=== PATIENT | male | born 1970 | race Caucasian/White ===

== ENCOUNTER → 2018-09-10 | Outpatient (CLI) | payer BC ==
[2018-09-10 15:34] LABS: Basophils # (A) 0.1 k/uL (0-0.2); Basophils % (A) 1 %; Eosinophils # (A) 0.1 k/uL (0-0.7); Eosinophils % (A) 1 %; HCT 40.3 % (39.0-53.0); HGB 13.3 gm/dL (13.0-17.5); Lymphocytes # (A) 2.4 k/uL (1.0-4.8); Lymphocytes % (A) 21 %; MCH 29.5 pg (25.0-35.0); MCHC 33.1 g/dL (31.0-37.0); MCV 89.2 fL (80.0-100.0); Mean Platelet Volume 6.3; Monocytes # (A) 0.5 k/uL (0-1.0); Monocytes % (A) 4 %; Neutrophils # (A) 8.5 k/uL (1.3-7.7); Neutrophils % (A) 73 %; Platelet Count 566 k/uL (150-450); Poikilocytosis Slight; RBC 4.51 m/uL (4.30-5.90); RDW 13.7 % (11.5-15.5); WBC 11.6 k/uL (3.8-10.6)
[2018-09-10 16:48] LABS: Erythrocyte Sedimentation Rate 86 mm/hr (0-15)
[2018-09-10 23:40] LABS: African American GFR (CKD) 122.4 (60.0-200.0); Albumin 4.3 g/dL (3.80-4.90); Albumin/Globulin Ratio 1.65 (1.60-3.17); BUN/Creat Ratio 12.5 Ratio (12.00-20.00); Calcium 9.6 mg/dL (8.7-10.3); Globulin 2.6 g/dL (1.6-3.3); Potassium 4.3 mmol/L (3.5-5.5); Total Bilirubin 0.7 mg/dL (0.3-1.2); Total Protein 6.9 g/dL (6.2-8.2)
[2018-09-10 23:50] LABS: T4, Free (Free Thyroxine) 1.3 ng/dL (0.80-1.80)
[2018-09-11 11:30] LABS: APTT 55 Sec(s) (<43); APTT 1:1 Mix 48 Sec(s) (<43); DRVVT 1:1 Mix 84 Sec(s) (<44); DRVVT Confirmation Positive (Negative); Dilute Russell Viper Venom 109 Sec(s) (<44); Hexagonal Phase Neutralization Positive (Negative)
== END | disposition home or self-care (01) ==
LOC: LABWHC1 14:52
PROVIDERS: ATTEND Internal Medicine
DX: R42 Dizziness and giddiness (principal); I26.99 Other pulmonary embolism without acute cor pulmonale
CPT/HCPCS: 36415; 80053; 82607; 84439; 84443; 85025; 85598; 85613; 85652; 85730; 85732

== ENCOUNTER → 2018-12-26 | Outpatient (CLI) | payer BC ==
--- NOTE | 2018-12-26 08:35 | CT ---
EXAMINATION TYPE: CT abdomen pelvis wo con DATE OF EXAM: 12/26/2018 HISTORY: Hematuria CT DLP: 1341.50 mGycm. Automated Exposure Control for Dose Reduction was Utilized. TECHNIQUE: CT scan of the abdomen and pelvis is performed without oral or IV contrast. COMPARISON: NONE FINDINGS: Within the limitations of a non-contrast study, the following observations are made. LUNG BASES: Left basilar linear scarring and/or atelectasis. LIVER/GB: No significant abnormality is appreciated. PANCREAS: No significant abnormality is seen. SPLEEN: No significant abnormality is seen. ADRENALS: No significant abnormality is seen. KIDNEYS: Large right renal pelvic stone measuring 2.0 cm long axis coronal image 55. Mild right-sided hydronephrosis and proximal hydroureter. No obstructing ureteral calculi. No left-sided renal calcul i or hydronephrosis. No additional right-sided renal calculi. BOWEL: No significant abnormality is seen. GENITAL ORGANS: Central calcifications in the prostate gland. LYMPH NODES: No greater than 1cm abdominal or pelvic lymph nodes are appreciated. OSSEOUS STRUCTURES: Moderate narrowing and acetabular spurring in both hip joints. Prominent facet ar thropathy lower lumbar spine. OTHER: No significant additional abnormality is seen. IMPRESSION: There is 2.0 cm calculus right renal pelvis with mild right-sided hydronephrosis. Advise urology referral to assess for lithotripsy. A Yellow level critical message alert has been initiated for Earl Helms MD via the [employer] Critical Results System on 12/26/2018 8:33 AM. This message alert has been sent to Earl cardona MD via the preferences provided by the clinician for the receipt of Radiology Critical Findings. Message ID [id number].
== END | disposition home or self-care (01) ==
LOC: RADCTMAIN 07:43
PROVIDERS: ATTEND Family Medicine
DX: N20.0 Calculus of kidney (principal); N13.30 Unspecified hydronephrosis; Z88.8 Allergy status to other drugs, medicaments and biological substances; Z88.1 Allergy status to other antibiotic agents
CPT/HCPCS: 74176

== ENCOUNTER → 2019-01-16 | Outpatient (CLI) | payer BC ==
[2019-01-16 11:37] LABS: Basophils % (A) 0 %; Eosinophils # (A) 0.1 k/uL (0-0.7); Eosinophils % (A) 1 %; HCT 41.8 % (39.0-53.0); HGB 14.4 gm/dL (13.0-17.5); Lymphocytes # (A) 2.3 k/uL (1.0-4.8); Lymphocytes % (A) 31 %; MCH 31.9 pg (25.0-35.0); MCHC 34.3 g/dL (31.0-37.0); Mean Platelet Volume 7.3; Monocytes # (A) 0.4 k/uL (0-1.0); Monocytes % (A) 5 %; Neutrophils # (A) 4.6 k/uL (1.3-7.7); Neutrophils % (A) 61 %; Platelet Count 258 k/uL (150-450); RDW 13.4 % (11.5-15.5); WBC 7.6 k/uL (3.8-10.6)
[2019-01-16 12:33] LABS: Appearance,Urine Turbid (Clear); Bacteria,Urine Occasional /hpf; Bilirubin,Urine Negative (Negative); Blood,Urine Large (Negative); Color,Urine Red; Glucose,Urine (UA) Negative (Negative); Ketones,Urine Negative (Negative); Leukocyte Esterase,Urine Small (Negative); Mucus,Urine Many /hpf; Nitrite,Urine Negative (Negative); PH, Urine 5.5 (5.0-8.0); Protein,Urine 2+ (Negative); RBC,Urine >182 /hpf (0-5); Specific Gravity,Urine 1.023 (1.001-1.035); Squamous Epithelial Cell,Urine 2 /hpf (0-4); Urobilinogen,Urine <2.0 mg/dL (<2.0); WBC,Urine 29 /hpf (0-5)
[2019-01-16 12:38] LABS: African American GFR (CKD) >90 (>60 ml/min/1.73 sqM); Anion Gap 9 mmol/L; Blood Urea Nitrogen 11 mg/dL (9-20); Calcium 9.5 mg/dL (8.4-10.2); Carbon Dioxide 27 mmol/L (22-30); Chloride 107 mmol/L (98-107); Glucose 92 mg/dL (74-99); Non-African American GFR(CKD) >90 (>60 ml/min/1.73 sqM); Potassium 4.3 mmol/L (3.5-5.1); Sodium 143 mmol/L (137-145)
== END ==
LOC: LABPAT 10:25
PROVIDERS: ATTEND Urology
DX: Z01.812 Encounter for preprocedural laboratory examination (principal); R31.0 Gross hematuria
CPT/HCPCS: 36415; 80048; 81001; 85025

== ENCOUNTER 2019-01-23 08:49 | Day surgery (SDC) | payer BC ==
[2019-01-21 11:45] VITALS: BMI 35.5
--- NOTE | 2019-01-22 10:17 | P.GSHP ---
History of Present Illness H&P Date: 01/22/19 47 yo male with a painful 2 cm right renal pelvis stone since september. Mild hydro We discussed treatment options He comes for a right pcnl. Risks complications and alternatives have been discussed. - Constitutional Constitutional: Denies chills, Denies fever - EENT Eyes: denies blurred vision, denies pain Ears, nose, mouth and throat: Denies headache, Denies sore throat - Cardiovascular Cardiovascular: Denies chest pain, Denies shortness of breath - Respiratory Respiratory: Denies cough, Denies 7 - Gastrointestinal Gastrointestinal: Denies abdominal pain, Denies diarrhea, Denies nausea, Denies vomiting - Genitourinary (Female) Genitourinary: Denies dysuria, Denies hematuria - Genitourinary (Male) Genitourinary: Denies dysuria, Denies hematuria - Musculoskeletal Musculoskeletal: Denies myalgias - Integumentary Integumentary: Denies pruritus, Denies rash - Neurological Neurological: Denies numbness, Denies weakness - Psychiatric Psychiatric: Denies anxiety, Denies depression - Endocrine Endocrine: Denies fatigue, Denies weight change Past Medical History Past Medical History: Deep Vein Thrombosis (DVT), GERD/Reflux, Osteoarthritis (OA), Pulmonary Embolus (PE), Skin Disorder Additional Past Medical History / Comment(s): DVT, PE 08/2018, After Total Knee surg 07/2018. Kidney stones, has currently. Recent lumps on lower back, told he had bacterial infection, on po AB Rx x5 days, healing now. RLS, neuropathy feet. History of Any Multi-Drug Resistant Organisms: None Reported Past Surgical History: Appendectomy, Joint Replacement Additional Past Surgical History / Comment(s): Lt Total Knee. Scopes on hali knees, ankles. EGD, Colonoscopy. Past Anesthesia/Blood Transfusion Reactions: No Reported Reaction Smoking Status: Former smoker - Past Family History Mother Family Medical History: Cancer Additional Family Medical History / Comment(s): Colon, stomach CA. Medications and Allergies Home Medications Medication Instructions Recorded Confirmed Type Augmentin (Unknown Dose) 1 cap PO BID 01/21/19 History Cholecalciferol (Vitamin D3) 2,000 unit PO DAILY 01/21/19 01/21/19 History [Vitamin D3] Gabapentin [Neurontin] 600 mg PO QID 01/21/19 01/21/19 History HYDROcodone/APAP 5-325MG [[place] 1 tab PO Q6HR PRN 01/21/19 01/21/19 History 5-325] Rivaroxaban [Xarelto] 20 mg PO DAILY 01/21/19 01/21/19 History Super B Complex 1 cap PO DAILY 01/21/19 History rOPINIRole HCL [Requip] 1 mg PO TID 01/21/19 01/21/19 History Allergies Allergy/AdvReac Type Severity Reaction Status Date / Time levofloxacin [From Levaquin] Allergy Rash/Hives Verified 01/21/19 11:21 metronidazole [From Flagyl] Allergy Rash/Hives Verified 01/21/19 11:21 Surgical - Exam - General well developed, well nourished, no distress - Eyes PERRL - ENT no hearing loss - Neck no masses - Respiratory normal expansion, normal respiratory effort - Cardiovascular Rhythm: regular - Abdomen Abdomen: soft, non tender - Genitourinary normal penis with no external lesions, testicles present - Integumentary no rash, no growths - Neurologic normal coordination, normal sensation - Musculoskeletal normal gait, normal posture - Psychiatric oriented to time, oriented to person, oriented to place, speech is normal, memory intact Results - Imaging CT scan - abdomen: report reviewed, image reviewed CT scan - pelvis: report reviewed, image reviewed Assessment and Plan Assessment: Impression: Right renal stone large Plan: Right PCNL
[~2019-01-23 08:49] MED LIST: DEXAMETHASONE SOD PHOSPHATE 10 MG/ML 1 ML VIAL IV ONE; MIDAZOLAM 2 MG/2 ML VIAL IV PRN; ONDANSETRON 4 MG/2 ML VIAL IVP ONE; SCOPOLAMINE 1.5MG/72HR PATCH TRANSDERM ONE
--- NOTE | 2019-01-23 09:51 | XR ---
EXAMINATION TYPE: XR KUB DATE OF EXAM: 01/23/2019 9:30 AM CLINICAL HISTORY: Right-sided kidney stone. TECHNIQUE: Two supine KUB images of the abdomen are obtained. COMPARISON: CT abdomen and pelvis December 26, 2018. FINDINGS: The large central calculus right kidney measuring near 2.0 cm over the right 12th rib is le ss well seen on x-ray but likely stable in position. No left-sided nephrolithiasis. Calcific densitie s projecting over right iliac crest respond to dystrophic calcifications or sutures related to append ectomy. Overall nonobstructive bowel gas pattern. Some multilevel spurring in the spine. Prostatic calcificat ions overlying the pubic symphysis. IMPRESSION: Stable large right renal pelvic calculus.
[2019-01-23] MEDS: LACTATED RINGERS 1,000 ML IV SCH (09:53)
[2019-01-23] MEDS ORDERED: HYDROcodone/APAP 5-325MG 1 EACH TAB PO PRN (11:32)
[2019-01-23] MEDS ORDERED: ACETAMINOPHEN TAB 325 MG TAB PO PRN (11:33)
[2019-01-23] MEDS ORDERED: MAG HYDROX/AL HYDROX/SIMETH 30 ML CUP PO PRN (11:33)
[2019-01-23] MEDS ORDERED: ONDANSETRON 4 MG/2 ML VIAL IVP PRN (11:33)
[2019-01-23] MEDS ORDERED: HYDROmorphone PCA 10 MG/50 ML BAG IV PRN (11:46)
[2019-01-23] MEDS ORDERED: NALOXONE 0.4 MG/ML 1 ML VIAL IV PRN (11:46)
[2019-01-23] MEDS ORDERED: NEOSTIGMINE 1 MG/ML 10 ML VIAL ONE (11:59)
[2019-01-23] MEDS ORDERED: SUCCINYLCHOLINE CHLORIDE 100 MG/5 ML SYR IV ONE (11:59)
[2019-01-23] MEDS ORDERED: GLYCOPYRROLATE 0.2 MG/ML 2 ML VIAL ONE (11:59)
[2019-01-23] MEDS ORDERED: fentaNYL (PF) 50 MCG/ML 2 ML AMP ONE (11:59)
[2019-01-23] MEDS ORDERED: MIDAZOLAM 2 MG/2 ML VIAL ONE (11:59)
[2019-01-23] MEDS ORDERED: LIDOCAINE 1% INJ 10MG/ML (20 ML MDV) ONE (11:59)
[2019-01-23] MEDS ORDERED: PROPOFOL 10 MG/ML 20 ML VIAL IV ONE (11:59)
[2019-01-23] MEDS ORDERED: ROCURONIUM BROMIDE 10 MG/ML 10 ML VIAL IV ONE (11:59)
[2019-01-23] MEDS ORDERED: IOPAMIDOL-370 50ML BTL MISCELLANE ONE (12:40)
[2019-01-23] MEDS ORDERED: LACTATED RINGERS 1,000 ML IV ONE (12:50)
--- NOTE | 2019-01-23 13:35 | P.OP ---
Date of Procedure: 01/23/19 Preoperative Diagnosis: right renal calculus large Postoperative Diagnosis: same Procedure(s) Performed: cystoscopy, placement of occluding balloon catheter right, percutaneous nephrostomy (Dr. Mackey) percutaneous nephrostolithotomy ultrasound, placement of 10-Belgian J nephrostomy Anesthesia: RAMONA Surgeon: Roberto Daly Estimated Blood Loss (ml): 50 Pathology: other (stone) Condition: stable Disposition: PACU Indications for Procedure: patient is 48. He has a 2.2 cm right renal pelvic stone with [place]. He comes for percutaneous nephrostolithotomy Description of Procedure: the patient is brought to the operating suite. He is given a general endo tracheal anesthesia on the transport gurney. He's placed in a frog position with a sterile prep and drape. Cystoscopy Foroblique lens and 22-Belgian sheath identifies a normal urethra. The prostate is not obstructing. The right ureteral orifice is identified and intubated with a 5-Belgian occluding balloon catheter at the UPJ. The cystoscope was removed. The ureteral catheter secured to a 16-Belgian Joshua. The patient is placed in a prone position with care to airways and extremities. Dr. Mackey of radiology performed percutaneous access to a right middle pole posterior calyx. I dilate the tract to 30-Belgian. The rigid sheath is introduced into the collecting system. The stone was identified. With the ultrasound I break the stone into smaller pieces and suction out or grasp the larger pieces. At the end of the procedure I looked throughout the collecting system with the flexible scope and do not see any remaining fragments. The UPJ is clear. Over the working wire a 10-Belgian J nephrostomy tube was placed and secured to the skin with 2-0 silk. The patient is awake and returned recovery room good condition. Blood loss is approximately 50 mL. He'll be placed in the hospital postoperatively.
[2019-01-23] MEDS ORDERED: KETOROLAC 30 MG/ML 1 ML VIAL IVP ONE (13:58)
[2019-01-23] MEDS: HYDROmorphone 0.5 MG/0.5 ML SYRINGE IVP PRN ×3 (14:05→14:25)
--- NOTE | 2019-01-23 14:29 | FL ---
EXAMINATION TYPE: FL Perc Nephrostomy New Access DATE OF EXAM: 01/23/2019 COMPARISON: CT 12/26/2018 HISTORY: Right renal calculus. PROCEDURE: Maximal barrier technique was utilized. The skin overlying the right kidney was localized using fluo roscopy and the overlying skin prepped and draped. Skin mesha was made with a scalpel. Access was ga ined under fluoroscopy, following placement of a ureteral occlusion balloon by the referring mami n and instillation of air in the renal collecting system with a 21-gauge needle to the kidney. A meaghan table posterior calyx was chosen. A 0.018 inch wire was advanced. The access site was dilated and subsequently a sheath was advanced into the renal pelvis following dilation with balloon along the tr act. Urine returned in the hub of the catheter. The patient underwent nephrolithotomy by the refervickey ramires clinician. The patient remained in stable condition without complication. The patient was discha rged to observation. IMPRESSION: STATUS POST NEPHROSTOMY PLACEMENT FOR NEPHROLITHOTOMY WITH FLUOROSCOPIC GUIDANCE. THIS PROCEDURE PER FORMED BY THE UNDERSIGNED. 59 seconds fluoroscopy time, single intraoperative C-arm image documents t he procedure
[2019-01-23] MEDS: GABAPENTIN 300 MG CAP PO SCH ×2 (16:36→21:19)
[2019-01-23] MEDS: DEXTROSE 5%-0.45% NACL 1,000 ML IV SCH ×2 (16:51→21:19)
[2019-01-23] MEDS: AMOXIC-POT CLAV 875-125MG 1 EACH TAB PO SCH (21:19)
[2019-01-24] MEDS: LACTATED RINGERS 1,000 ML IV SCH (01:39)
[2019-01-24 07:57] VITALS: BP 119/68; PULSE 57; RESP 15; TEMP 97.9
[2019-01-24] MEDS: AMOXIC-POT CLAV 875-125MG 1 EACH TAB PO SCH (09:22)
[2019-01-24] MEDS: GABAPENTIN 300 MG CAP PO SCH ×2 (09:22→12:57)
[2019-01-24] MEDS: DEXTROSE 5%-0.45% NACL 1,000 ML IV SCH (09:30)
[2019-01-24] MEDS ORDERED: HYDROcodone/APAP 5-325MG 1 EACH TAB PO PRN (12:08)
--- NOTE | 2019-01-24 12:14 | P.DS ---
Providers Date of admission: 01/23/19 23:26 Attending physician: Roberto Daly Primary care physician: [facility] [place][Note 3] Course: The patient is a 48-year-old gentleman with a 2.2 cm right renal stone in the renal pelvis. He underwent percutaneous nephrostolithotomy 01/23/2019. This was done without difficulty. He has done well overnight. His pain is under control. I will discontinue his Joshua and IV fluids. If his pain veins under control and he voids he will be discharged home. In care of family regular diet limited activity. He'll go home with a nephrostomy tube. He'll follow-up in the office in 01/28/2019 first nephrostomy tube removal. Postoperative instructions been given. The patient understands and consents. Patient Condition at Discharge: Good Plan - Discharge Summary Discharge Rx Participant: No New Discharge Prescriptions: New HYDROcodone/APAP 5-325MG [[place] 5-325] 1 tab PO Q4HR PRN #10 tab PRN Reason: Pain No Action HYDROcodone/APAP 5-325MG [[place] 5-325] 1 tab PO Q6HR PRN PRN Reason: Pain Cholecalciferol (Vitamin D3) [Vitamin D3] 2,000 unit PO DAILY Rivaroxaban [Xarelto] 20 mg PO DAILY rOPINIRole HCL [Requip] 1 mg PO TID Gabapentin [Neurontin] 600 mg PO QID Super B Complex 1 cap PO DAILY Augmentin (Unknown Dose) 1 cap PO BID Discharge Medication List Augmentin (Unknown Dose) 1 cap PO BID 01/21/19 [History] Cholecalciferol (Vitamin D3) [Vitamin D3] 2,000 unit PO DAILY 01/21/19 [History] Gabapentin [Neurontin] 600 mg PO QID 01/21/19 [History] HYDROcodone/APAP 5-325MG [[place] 5-325] 1 tab PO Q6HR PRN 01/21/19 [History] Rivaroxaban [Xarelto] 20 mg PO DAILY 01/21/19 [History] Super B Complex 1 cap PO DAILY 01/21/19 [History] rOPINIRole HCL [Requip] 1 mg PO TID 01/21/19 [History] HYDROcodone/APAP 5-325MG [[place] 5-325] 1 tab PO Q4HR PRN #10 tab 01/24/19 [Rx] Follow up Appointment(s)/Referral(s): Roberto Daly MD [STAFF PHYSICIAN] - 01/28/19 Activity/Diet/Wound Care/Special Instructions: home with nephrostomy tube Discharge Disposition: HOME SELF-CARE
== END 2019-01-24 12:41 | disposition home or self-care (01) ==
LOC: OR 08:49 → 4SSUR 15:07 → UNDOADMOB 23:26 → 4SSUR 23:26 → OR 23:26 → UNDODISOB 01-24 15:07
PROVIDERS: ATTEND Urology
DX: N20.0 Calculus of kidney (principal); Z96.652 Presence of left artificial knee joint; Z87.891 Personal history of nicotine dependence; Z80.0 Family history of malignant neoplasm of digestive organs; Z79.899 Other long term (current) drug therapy; Z88.1 Allergy status to other antibiotic agents; Z86.718 Personal history of other venous thrombosis and embolism; Z86.711 Personal history of pulmonary embolism; Z79.01 Long term (current) use of anticoagulants
CPT/HCPCS: 86900; 86901; 86850; 82365; 50432; 74018; 50081; C2628; C1769 ×2; C1894; C1729; J2250; J1100; J2710; J0690; J2405; J2001; J3010; J1885; J0330; J2704; J1170 ×2; Q9967

== ENCOUNTER → 2019-09-12 | Outpatient (CLI) | payer BC ==
--- NOTE | 2019-09-13 08:18 | ECHOS ---
STRESS ECHOCARDIOGRAM LUMASON: Vial INDICATIONS: Stress Echo MEDICATIONS: BASELINE HEART RATE: 69 BASELINE BLOOD PRESSURE: 107/93 MAXIMUM HEART RATE: 148 MAXIMUM BLOOD PRESSURE: 185/78 85% MPHR: 145 100% MPHR: 171 METS: 10.5 MAXIMUM STAGE REACHED: 3 TOTAL EXERCISE TIME: 9:00 CLINICAL INFORMATION: Baseline heart rate 69 beats per minute. Baseline blood pressure 107/73 mmHg. Baseline 12-lead ECG shows sinus rhythm with [address] elevation in the inferior leads. The patient exercised on a Maury protocol for 9 minutes, achieving a peak heart rate of 148 beats per minute. Normal blood pressure response to exercise. There was no ECG evidence for ischemia. Occasional PVCs were noted during exercise. No evidence for ischemia. Baseline 2D echo images were suboptimal. Definity contrast was used. There were no abnormalities at baseline. With exercise there was excellent augmentation of overall LV contractility without development of any wall motion abnormalities. At recovery, regional global LV systolic function remained normal. IMPRESSION: Good exercise capacity. No ECG or echocardiographic evidence for ischemia. Occasional PVCs with exercise. MMODL / IJN: [id number] /
== END | disposition home or self-care (01) ==
LOC: RADNMMAIN 08:49
PROVIDERS: ATTEND Family Medicine
DX: R06.02 Shortness of breath (principal); R53.83 Other fatigue; Z88.8 Allergy status to other drugs, medicaments and biological substances
CPT/HCPCS: 93351; Q9950

== ENCOUNTER → 2019-12-27 | Outpatient (CLI) | payer BC ==
--- NOTE | 2019-12-28 01:34 | CT ---
EXAMINATION TYPE: CT abdomen pelvis wo con DATE OF EXAM: 12/27/2019 COMPARISON: 12/26/2018. HISTORY: flank pain, testicular pain. hx of stones. CT DLP: 1425 mGycm Automated exposure control for dose reduction was used. TECHNIQUE: Helical acquisition of images was performed from the lung bases through the pelvis. FINDINGS: LUNG BASES: No significant abnormality is appreciated. LIVER/GB: No significant abnormality is appreciated. PANCREAS: No significant abnormality is seen. SPLEEN: No significant abnormality is seen. ADRENALS: No significant abnormality is seen. KIDNEYS: No hydronephrosis or nephrolithiasis. FREE AIR: No free air is visualized RETROPERITONEAL ADENOPATHY: None visualized REPRODUCTIVE ORGANS: No significant abnormality is seen URINARY BLADDER: No significant abnormality is seen. PELVIC ADENOPATHY: None visualized. OSSEOUS STRUCTURES: No significant abnormality is seen. BOWEL: No significant abnormality is seen. Appendectomy noted. OTHER: None. IMPRESSION: NO ACUTE ABNORMALITY OR EVIDENCE OF OBSTRUCTIVE UROPATHY.
== END | disposition home or self-care (01) ==
LOC: RADCTMAIN 18:07
PROVIDERS: ATTEND Family Medicine
DX: N50.811 Right testicular pain (principal)
CPT/HCPCS: 74176

== ENCOUNTER → 2020-03-18 | Outpatient (CLI) | payer BC ==
--- NOTE | 2020-03-18 16:32 | US ---
EXAMINATION TYPE: US carotid duplex BILAT DATE OF EXAM: 03/18/2020 COMPARISON: NONE CLINICAL HISTORY: 49-year-old male R55 syncope. TECHNIQUE: Carotid duplex ultrasound examination. Indirect Doppler criteria was utilized. FINDINGS: EXAM MEASUREMENTS: RIGHT: Peak Systolic Velocity (PSV) cm/sec ----- Right CCA: 82.3 ----- Right ICA: 105.5 ----- Right ECA: 86.6 ICA/CCA ratio: 1.3 RIGHT: End Diastole cm/sec ----- Right CCA: 21.2 ----- Right ICA: 43.0 ----- Right ECA: 14.0 LEFT: Peak Systolic Velocity (PSV) cm/sec ----- Left CCA: 102.6 ----- Left ICA: 89.5 ----- Left ECA: 72.1 ICA/CCA ratio: 0.9 LEFT: End Diastole cm/sec ----- Left CCA: 29.9 ----- Left ICA: 27.0 ----- Left ECA: 14.0 VERTEBRALS (direction of flow): Right Vertebral: Antegrade Left Vertebral: Antegrade Rhythm: Normal Sausage Machine Operator notes: No significant stenosis seen IMPRESSION: No hemodynamically significant internal carotid artery stenosis on either side. Criteria for Assigning % of Stenosis / Diameter reduction (Estimation based on the indirect measurements of the internal carotid artery velocities (ICA PSV). 1. Normal (no stenosis)=ICA PSV < 125 cm/s: ratio < 2.0: ICA EDV<40 cm/s. 2. Less than 50% stenosis=ICA PSV < 125 cm/s: ratio < 2.0: ICA EDV<40 cm/s. 3. 50 to 69% stenosis=ICA PSV of 125 to 230 cm/s: ration 2.0 ? 4.0: ICA EDV 40-100 cm/s. 4. Greater than 70% stenosis to near occlusion= ICA PSV > 230 cm/s: ratio > 4.0: ICA EDV > 100 cm/s. 5. Near occlusion= ICA PSV velocities may be low or undetectable: variable ratio and ICA EDV. 6. Total occlusion=unable to detect flow.
== END | disposition home or self-care (01) ==
LOC: RADUSWWP 15:25
PROVIDERS: ATTEND Family Medicine
DX: R55 Syncope and collapse (principal); Z88.1 Allergy status to other antibiotic agents
CPT/HCPCS: 93880

== ENCOUNTER → 2020-05-06 | Outpatient (CLI) | payer BC ==
--- NOTE | 2020-05-06 17:12 | CONS ---
CONSULTATION DATE OF SERVICE: 05/06/2020 REASON FOR CONSULTATION: A 49-year-old gentleman who has been evaluated in the sleep center for tiredness and sleepiness during the day, snoring, restless legs and possibly periodic limb movements. HISTORY OF PRESENT ILLNESS/SLEEP-WAKE EVALUATION: Patient's usual sleep schedule on weekdays from 10 p.m. to 5:30 a.m. and on weekends from 11 or 11:30 p.m. to 7 to 7:15 a.m. No problems with falling asleep, although patient has restless leg symptoms and takes medications for restless legs during the day and at bedtime. Ider Sleepiness Scale is 4. During the night the patient snores and wake up from sleep once with nocturia. He watches TV in bedroom. He usually sleeps on the side position. No history of hypnagogic hallucinations, sleep paralysis or cataplexy. PAST MEDICAL HISTORY: Positive for peripheral neuropathy, not related to diabetes, restless legs syndrome, kidney stone, headaches, arthritis. MEDICATIONS: Gabapentin 600 mg up to 4 times a day, ropinirole 0.25 mg once a day at 9:00 p.m., Robaxin 750 mg q.8 hours as needed, vitamin D3 supplement, vitamin B supplement. PAST SURGICAL HISTORY: Right kidney stone removed, appendectomy. SOCIAL HISTORY: Positive for smoking many years ago, quit smoking 27 years ago. Alcohol consumption none. FAMILY HISTORY: Positive for cancer, diabetes, during the sleep, REVIEW OF SYSTEMS: Restless leg symptoms, awakenings from sleep, episodes of tiredness during the day, snoring. PHYSICAL EXAMINATION: GENERAL: gentleman without distress. VITAL SIGNS: BP 120/71, HR 76, RR 15, height 6' 0 ", weight 280.2, body mass index 37.9, oxygen saturation at room air 99%. HEENT: PERRLA, EOMI. Oropharynx shows tongue protrudes midline, low position of soft palate. Mallampati 3. NECK: Supple, no JVD. Thyroid is not palpable. Wide, 18 1/2 inches in circumference. LUNGS: Clear to percussion and to auscultation. Good air exchange. No wheezing or rhonchi. HEART: S1, S2 regular. No murmurs, gallops, or rubs. ABDOMEN: Slightly obese, soft and nontender. Bowel sounds are present. No organomegaly appreciated. EXTREMITIES: No clubbing or cyanosis. CHILD DEVELOPMENT SPECIALIST: Awake, alert, and oriented X3. Cranial nerves 2 to 7 intact. There is no fasciculation or atrophy. noted. No focal deficits observed. IMPRESSION: 1. Snoring. Awakenings from sleep with nocturia. Low position of soft palate, Mallampati 3, wide neck 18 inches in circumference, episodes of tiredness and sleepiness during the day, possible obstructive sleep apnea-hypopnea syndrome. 2. History of restless legs syndrome. 3. Possibly periodic limb movements. 4. History of peripheral neuropathy not related to diabetes. 5. History of arthritis. 6. Status post total left knee replacement. 7. Status post big stone 1 inch diameter removed from right kidney. 8. Status post appendectomy. PLAN: 1. Polysomnography for evaluation of patient's breathing during sleep and to check for possible periodic limb movements. This patient has history of significant restless legs syndrome. 2. Following plan after reviewing results of sleep test. 3. Losing weight. 4. No driving if feeling any sleepiness. Thank you very much for referring this patient for consultation. Sincerely, Deon Aaron MD, PhD, FAASM Diplomat of [employer] [place] Product Support Sales Representative of [facility] [employer] MMODL / IJN: [id number] /
== END | disposition home or self-care (01) ==
CPT/HCPCS: 99211

== ENCOUNTER 2020-07-13 02:10 | Emergency (ER) | payer BC ==
[2020-07-13 02:20] VITALS: BP 119/82; PULSE 72; RESP 18; TEMP 98.2
--- NOTE | 2020-07-13 02:33 | ED ---
Recheck HPI - General Chief Complaint: Back Pain/Injury Stated Complaint: RT flank pain Time Seen by Provider: 07/13/20 02:31 Source: patient Mode of arrival: ambulatory Limitations: no limitations - Related Data Home Medications Medication Instructions Recorded Confirmed Augmentin (Unknown Dose) 1 cap PO BID 01/21/19 01/23/19 Cholecalciferol (Vitamin D3) 2,000 unit PO DAILY 01/21/19 01/23/19 [Vitamin D3] Gabapentin [Neurontin] 600 mg PO QID 01/21/19 01/23/19 HYDROcodone/APAP 5-325MG [[place] 1 tab PO Q6HR PRN 01/21/19 01/23/19 5-325] Rivaroxaban [Xarelto] 20 mg PO DAILY 01/21/19 01/23/19 Super B Complex 1 cap PO DAILY 01/21/19 01/23/19 rOPINIRole HCL [Requip] 1 mg PO TID 01/21/19 01/23/19 Previous Rx's Medication Instructions Recorded HYDROcodone/APAP 5-325MG [[place] 1 tab PO Q4HR PRN #10 tab 01/24/19 5-325] Allergies Allergy/AdvReac Type Severity Reaction Status Date / Time levofloxacin [From Levaquin] Allergy Rash/Hives Verified 07/13/20 02:21 metronidazole [From Flagyl] Allergy Rash/Hives Verified 07/13/20 02:21 Review of Systems ROS Statement: Those systems with pertinent positive or pertinent negative responses have been documented in the HPI. ROS Other: All systems not noted in ROS Statement are negative. Past Medical History Past Medical History: Deep Vein Thrombosis (DVT), GERD/Reflux, Osteoarthritis (OA), Pulmonary Embolus (PE), Skin Disorder Additional Past Medical History / Comment(s): DVT, PE 08/2018, After Total Knee surg 07/2018. Kidney stones, has currently. Recent lumps on lower back, told he had bacterial infection, on po AB Rx x5 days, healing now. RLS, neuropathy feet. History of Any Multi-Drug Resistant Organisms: None Reported Past Surgical History: Appendectomy, Joint Replacement Additional Past Surgical History / Comment(s): Lt Total Knee. Scopes on hali knees, ankles. EGD, Colonoscopy. Past Anesthesia/Blood Transfusion Reactions: No Reported Reaction Past Psychological History: No Psychological Hx Reported Smoking Status: Never smoker Past Alcohol Use History: None Reported Past Drug Use History: None Reported - Past Family History Mother Family Medical History: Cancer Additional Family Medical History / Comment(s): Colon, stomach CA. General Exam Limitations: no limitations Course Vital Signs 07/13/20 02:16 Temperature 98.2 F Pulse Rate 72 Respiratory 18 Rate Blood Pressure 119/82 O2 Sat by Pulse 99 Oximetry Medical Decision Making - Lab Data Result diagrams: 07/13/20 03:05 07/13/20 03:05 Lab Results 07/13/20 07/13/20 Range/Units 03:05 03:05 WBC 11.6 H (3.8-10.6) k/uL RBC 4.58 (4.30-5.90) m/uL Hgb 14.7 (13.0-17.5) gm/dL Hct 43.6 (39.0-53.0) % MCV 95.2 (80.0-100.0) fL MCH 32.0 (25.0-35.0) pg MCHC 33.7 (31.0-37.0) g/dL RDW 13.6 (11.5-15.5) % Plt Count 250 (150-450) k/uL MPV 7.1 Neutrophils % 75 % Lymphocytes % 17 % Monocytes % 5 % Eosinophils % 1 % Basophils % 1 % Neutrophils # 8.7 H (1.3-7.7) k/uL Lymphocytes # 2.0 (1.0-4.8) k/uL Monocytes # 0.6 (0-1.0) k/uL Eosinophils # 0.1 (0-0.7) k/uL Basophils # 0.1 (0-0.2) k/uL Sodium 140 (137-145) mmol/L Potassium 4.2 (3.5-5.1) mmol/L Chloride 106 (98-107) mmol/L Carbon Dioxide 25 (22-30) mmol/L Anion Gap 9 mmol/L BUN 20 (9-20) mg/dL Creatinine 1.25 (0.66-1.25) mg/dL Est GFR (CKD-EPI)AfAm 78 (>60 ml/min/1.73 sqM) Est GFR (CKD-EPI)NonAf 67 (>60 ml/min/1.73 sqM) Glucose 112 H (74-99) mg/dL Calcium 9.6 (8.4-10.2) mg/dL Total Bilirubin 0.7 (0.2-1.3) mg/dL AST 20 (17-59) U/L ALT 22 (4-49) U/L Alkaline Phosphatase 79 (38-126) U/L Creatine Kinase 59 (55-170) U/L Total Protein 7.1 (6.3-8.2) g/dL Albumin 4.4 (3.5-5.0) g/dL Amylase 74 (30-110) U/L Lipase 160 (23-300) U/L Disposition Clinical Impression: Kidney stones, Right ureteral calculus Disposition: HOME SELF-CARE Condition: Good Instructions (If sedation given, give patient instructions): Kidney Stones (ED) Is patient prescribed a controlled substance at d/c from ED?: No Referrals: Earl Helms MD [Primary Care Provider] - 1-2 days
[2020-07-13] MEDS ORDERED: HYDROmorphone 1 MG/ML 1 ML SYRINGE IVP STA (02:54)
[2020-07-13] MEDS ORDERED: KETOROLAC 15 MG/ML 1 ML VIAL IVP STA (02:54)
[2020-07-13] MEDS ORDERED: SODIUM CHLORIDE 0.9% 1,000 ML IV STA (02:54)
[2020-07-13 03:15] LABS: Basophils # (A) 0.1 k/uL (0-0.2); Basophils % (A) 1 %; Eosinophils # (A) 0.1 k/uL (0-0.7); Eosinophils % (A) 1 %; HCT 43.6 % (39.0-53.0); HGB 14.7 gm/dL (13.0-17.5); Lymphocytes % (A) 17 %; MCHC 33.7 g/dL (31.0-37.0); MCV 95.2 fL (80.0-100.0); Mean Platelet Volume 7.1; Monocytes # (A) 0.6 k/uL (0-1.0); Monocytes % (A) 5 %; Neutrophils # (A) 8.7 k/uL (1.3-7.7); Neutrophils % (A) 75 %; Platelet Count 250 k/uL (150-450); RBC 4.58 m/uL (4.30-5.90); RDW 13.6 % (11.5-15.5); WBC 11.6 k/uL (3.8-10.6)
[2020-07-13 03:26] LABS: Albumin 4.4 g/dL (3.5-5.0); Calcium 9.6 mg/dL (8.4-10.2); Potassium 4.2 mmol/L (3.5-5.1); Total Bilirubin 0.7 mg/dL (0.2-1.3); Total Protein 7.1 g/dL (6.3-8.2)
--- NOTE | 2020-07-13 03:38 | CT ---
EXAMINATION TYPE: CT abdomen pelvis wo con DATE OF EXAM: 07/13/2020 COMPARISON: 12/27/2019 HISTORY: Abdominal pain CT DLP: mGycm Automated exposure control for dose reduction was used. Images obtained from the diaphragm to the floor the pelvis with no contrast. FINDINGS: There is minimal subsegmental atelectasis left lung base. Heart size is normal. There is no pericardi al effusion. Liver spleen stomach pancreas gallbladder appear intact. Bile ducts are not dilated. There is no adrenal mass. Kidneys have normal size. There is right-sided hydronephrosis and perinephr ic stranding. There is right-sided hydroureter with 3 mm obstructing calculus at the ureterovesical j unction. Bladder distends smoothly. Left kidney has normal contour with no hydronephrosis. There is n o retroperitoneal adenopathy. There is no inguinal hernia. There is extensive prostate calcification. There is no pelvic mass. There is no mesenteric edema. There is no ascites or free air. There is no bowel obstruction. Lumbar vertebra have normal alignment. Posterior elements are intact. There is no compression fractur e. Bony pelvis is intact. There is short appendix. There are surgical clips or calcifications at the tip of the appendix. IMPRESSION: Obstructing calculus distal right ureter with right-sided hydronephrosis and hydroureter. No other ca lculus seen. Obstruction is new compared to old exam. There is severe spinal stenosis at L4-5 due to facet arthropathy and developmentally small spinal can al unchanged..
[2020-07-13 04:04] LABS: Appearance,Urine Clear (Clear); Bacteria,Urine Rare /hpf; Bilirubin,Urine Negative (Negative); Blood,Urine Large (Negative); Color,Urine Yellow; Glucose,Urine (UA) Negative (Negative); Ketones,Urine Trace (Negative); Leukocyte Esterase,Urine Trace (Negative); Mucus,Urine Rare /hpf; Nitrite,Urine Negative (Negative); Protein,Urine Negative (Negative); RBC,Urine >182 /hpf (0-5); Specific Gravity,Urine 1.017 (1.001-1.035); Squamous Epithelial Cell,Urine 1 /hpf (0-4); Urobilinogen,Urine <2.0 mg/dL (<2.0); WBC,Urine 2 /hpf (0-5)
== END 2020-07-13 05:49 | disposition home or self-care (01) ==
LOC: EC 02:10
DX: N13.2 Hydronephrosis with renal and ureteral calculous obstruction (principal); K21.9 Gastro-esophageal reflux disease without esophagitis; M19.90 Unspecified osteoarthritis, unspecified site; Z86.711 Personal history of pulmonary embolism; Z86.718 Personal history of other venous thrombosis and embolism
CPT/HCPCS: 36415; 80053; 82150; 82550; 83690; 85025; 81001; 74176; 99284; 96374; 96375; J1170; J1885

== ENCOUNTER → 2020-09-25 | Outpatient (CLI) | payer BC ==
[2020-09-25 09:43] LABS: HGB 15.9 gm/dL (13.0-17.5); MCH 33.1 pg (25.0-35.0); MCHC 33.8 g/dL (31.0-37.0); MCV 97.9 fL (80.0-100.0); Mean Platelet Volume 7.9; Platelet Count 192 k/uL (150-450); RBC 4.79 m/uL (4.30-5.90); RDW 13.3 % (11.5-15.5); WBC 9.1 k/uL (3.8-10.6)
[2020-09-25 09:52] LABS: Potassium 4.9 mmol/L (3.5-5.1)
[2020-09-25 09:53] LABS: African American GFR (CKD) >90 (>60 ml/min/1.73 sqM); Anion Gap 6 mmol/L; Blood Urea Nitrogen 15 mg/dL (9-20); Carbon Dioxide 27 mmol/L (22-30); Chloride 106 mmol/L (98-107); Non-African American GFR(CKD) >90 (>60 ml/min/1.73 sqM); Sodium 139 mmol/L (137-145)
== END | disposition home or self-care (01) ==
LOC: LABPAT 08:46
PROVIDERS: ATTEND Internal Medicine
DX: Z01.812 Encounter for preprocedural laboratory examination (principal); R55 Syncope and collapse; R07.9 Chest pain, unspecified
CPT/HCPCS: 36415; 80051; 82565; 84520; 85027

== ENCOUNTER 2020-09-30 10:58 | Day surgery (SDC) | payer BC ==
[2020-09-24 15:02] VITALS: BMI 35.9
[~2020-09-30 10:58] MED LIST changes: +ALPRAZolam 0.25 MG TAB PO PRN; +ALPRAZolam 0.5 MG TAB PO PRN; +ASPIRIN 325 MG TAB PO STA; +ATORVASTATIN 80 MG TAB PO STA; -DEXAMETHASONE SOD PHOSPHATE 10 MG/ML 1 ML VIAL IV ONE; -MIDAZOLAM 2 MG/2 ML VIAL IV PRN; +NITROGLYCERIN SL TABS 0.4 MG TAB SUBLINGUAL PRN; -ONDANSETRON 4 MG/2 ML VIAL IVP ONE; -SCOPOLAMINE 1.5MG/72HR PATCH TRANSDERM ONE; +SODIUM CHLORIDE 0.9% 1,000 ML IV SCH; +SODIUM CHLORIDE 0.9% 1,000 ML in EMPTY BAG 1 BAG IV ONE
[2020-09-30] MEDS ORDERED: SODIUM CHLORIDE 0.9% 1,000 ML IV ONE (11:09)
[2020-09-30 11:25] VITALS: RESP 16; TEMP 99.1
[2020-09-30] MEDS ORDERED: fentaNYL (PF) 50 MCG/ML 2 ML AMP ONE (12:19)
[2020-09-30] MEDS ORDERED: HEPARIN SODIUM 1,000 UN/ML (10ML VL) ONE (12:19)
[2020-09-30] MEDS ORDERED: LIDOCAINE 1% INJ 10MG/ML (20 ML MDV) ONE (12:19)
[2020-09-30] MEDS ORDERED: VERAPAMIL 2.5 MG/ML 2 ML AMP ONE (12:19)
[2020-09-30] MEDS ORDERED: fentaNYL (PF) 50 MCG/ML 2 ML AMP IV ONE (12:35)
[2020-09-30] MEDS ORDERED: MIDAZOLAM 2 MG/2 ML VIAL IV ONE ×2 (12:36)
[2020-09-30] MEDS ORDERED: TOPICAL SKIN ADHESIVE 1 EACH AMP TOPICAL ONE ×2 (12:43→13:15)
[2020-09-30] MEDS ORDERED: LIDOCAINE 1% INJ 10MG/ML (20 ML MDV) SQ ONE (12:44)
[2020-09-30] MEDS ORDERED: VERAPAMIL SYRINGE (5 MG/10 ML) INTRAARTER ONE (12:45)
--- NOTE | 2020-09-30 13:04 | P.CARDCATH ---
Description of Procedure: PROCEDURES PERFORMED: Left heart catheterization, bilateral coronary angiography INDICATION: Syncope, chest pain concerning for unstable angina HISTORY: Patient is a pleasant 49-year-old male who has been having recurrent syncopal episodes as well as episodes of chest pain at rest associated with palpitations or last 6 months. He had negative dobutamine stress echo however has still been having episodes of chest pain at rest and syncope and therefore heart catheterization was recommended for definitive diagnosis. CONSENT:I have discussed the risks, benefits and alternative therapies for the above-mentioned procedure and for both sedation/analgesia as well as necessary blood product administration, if indicated, as they pertain to this patient. The patient has indicated understanding and acceptance of the risks and procedures discussed. PROCEDURE: After the risks, benefits and alternatives of the above mentioned procedure explained in detail with the patient, informed consent was obtained. Patient was taken to the catheterization lab and prepped and draped in usual fashion. 1% lidocaine was used to anesthetize the right radial artery. A 6- Finnish sheath was placed in the right radial artery using modified Seldinger technique. Left coronary angiography was performed with a 5-Finnish JL 3.5 catheter and right coronary angiography was performed with a 5-Finnish JR5 catheter in various views. A 5-Finnish FR5 catheter was inserted into the left ventricle and pressure measurements were obtained. The right radial sheath was removed and a TR band was placed with hemostasis achieved. The patient tolerated the procedure well. Patient was transported back to the post catheterization holding area in stable condition. Conscious Sedation: Patient was monitored under the direct supervision of vision of myself for conscious sedation using Versed and fentanyl for a total duration of [] minutes HEMODYNAMICS: Ao: 118/76 LV: 116/9, LVEDP 18mmHg SELECTIVE CORONARY ARTERIOGRAPHY: LEFT MAIN: The left main is a large caliber vessel which bifurcates into the LAD and circumflex. There is no significant stenosis. LEFT ANTERIOR DESCENDING CORONARY ARTERY: LAD is a large caliber vessel which wraps around to the apex. There is no significant stenosis. LEFT CIRCUMFLEX CORONARY ARTERY: Left circumflex is a moderate caliber vessel without significant stenosis. RIGHT CORONARY ARTERY: The right coronary artery is a large caliber vessel which gives off a PDA and PLV branch and is the dominant vessel. There is no significant stenosis. FINAL IMPRESSION: 1. Normal coronary arteries as described above. 2. Normal left sided filling pressures PLAN: 1. Aggressive risk factor modification per most recent ACC/AHA guidelines. 2. Follow-up in the office in 1-2 weeks.
[2020-09-30] MEDS ORDERED: IOPAMIDOL-370 125ML BTL INJ ONE (13:07)
[2020-09-30] MEDS ORDERED: RX INFO: IV CONTRAST WAS GIVEN 1 EACH MISC MISCELLANE PRN (13:20)
--- NOTE | 2020-09-30 13:20 | P.PCN ---
Description of Procedure: Procedure: Insertion of Linq loop recorder Indication: Syncope HISTORY: Patient is a pleasant 49-year-old male with history of recurrent syncope since February. He had diagnostic heart catheterization performed earlier today which showed no obstructive disease, normal coronary arteries. Secondary recurrent syncope a few months apart loop recorder was recommended. CONSENT:I have discussed the risks, benefits and alternative therapies for the above-mentioned procedure. The patient has indicated understanding and acceptance of the risks and procedures discussed. PROCEDURE: Patient was brought to the catheterization lab in a fasting state. Patient was prepped and draped in the usual fashion. 1% lidocaine was used to anesthetize the area of the left third intercostal space. Using the loop recorder incision device, a small 0.5 cm incision was made in the left 3rd intercostal space. Next the Linq loop recorder was deployed in the 3rd intercostal space subcutaneously using the insertion tool. Thresholds were checked and were excellent at 0.3 V. Next the incision was closed using Dermabond. Steristrips were placed over the incision and the procedure was completed. The patient tolerated the procedure well. The patient was transported to the post cath holding area in stable condition. Linq loop recorder serial number: [id number]
[2020-09-30 16:06] VITALS: BP 106/67; PULSE 70
== END 2020-09-30 16:09 | disposition home or self-care (01) ==
LOC: CATHCVL 10:58
PROVIDERS: ATTEND Internal Medicine
DX: R07.89 Other chest pain (principal); R55 Syncope and collapse; Z86.711 Personal history of pulmonary embolism; E55.9 Vitamin D deficiency, unspecified; I50.22 Chronic systolic (congestive) heart failure; R42 Dizziness and giddiness; R00.2 Palpitations; Z79.899 Other long term (current) drug therapy
CPT/HCPCS: 93458; 33285; C1894; C1764; J2250; J0690; J2001; J3010; J1644; Q9967

== ENCOUNTER → 2021-01-27 | Outpatient (CLI) | payer BC ==
[2021-01-27 13:57] LABS: HCT 49.1 % (39.0-53.0); HGB 16.4 gm/dL (13.0-17.5); MCH 32.4 pg (25.0-35.0); MCHC 33.4 g/dL (31.0-37.0); MCV 97.1 fL (80.0-100.0); Mean Platelet Volume 7.7; Platelet Count 227 k/uL (150-450); RBC 5.06 m/uL (4.30-5.90); RDW 13.3 % (11.5-15.5)
[2021-01-27 14:07] LABS: African American GFR (CKD) >90 (>60 ml/min/1.73 sqM); Anion Gap 11 mmol/L; Blood Urea Nitrogen 12 mg/dL (9-20); Carbon Dioxide 26 mmol/L (22-30); Chloride 105 mmol/L (98-107); Non-African American GFR(CKD) >90 (>60 ml/min/1.73 sqM); Potassium 4.3 mmol/L (3.5-5.1); Sodium 142 mmol/L (137-145)
== END | disposition home or self-care (01) ==
LOC: LABPAT 13:36
PROVIDERS: ATTEND Internal Medicine Clinical Cardiac Electrophysiology
DX: Z01.812 Encounter for preprocedural laboratory examination (principal); I47.1 Supraventricular tachycardia
CPT/HCPCS: 36415; 80051; 82565; 84520; 85027

== ENCOUNTER 2021-02-11 12:45 | Day surgery (SDC) | payer BC ==
[2021-02-04 12:22] VITALS: BMI 35.9
[2021-02-11] MEDS: SODIUM CHLORIDE 0.9% 1,000 ML IV SCH ×2 (13:10→20:43)
[2021-02-11] MEDS ORDERED: LIDOCAINE 1% INJ 10MG/ML (20 ML MDV) ONE (15:51)
[2021-02-11] MEDS ORDERED: NEOSTIGMINE 1 MG/ML 10 ML VIAL ONE (15:53)
[2021-02-11] MEDS ORDERED: PROPOFOL 10 MG/ML 20 ML VIAL IV ONE (15:53)
[2021-02-11] MEDS ORDERED: HEPARIN SODIUM,PORCINE 5,000 UNIT/ML 1 ML VIAL ONE (15:53)
[2021-02-11] MEDS ORDERED: MIDAZOLAM 2 MG/2 ML VIAL ONE (15:53)
[2021-02-11] MEDS ORDERED: ESMOLOL 100 MG/10 ML VIAL ONE (15:53)
[2021-02-11] MEDS ORDERED: ROCURONIUM 10 MG/ML (5 ML VIAL) IV ONE (15:53)
[2021-02-11] MEDS ORDERED: SUCCINYLCHOLINE CHLORIDE 100 MG/5 ML SYR IV ONE (15:53)
[2021-02-11] MEDS ORDERED: fentaNYL (PF) 50 MCG/ML 2 ML AMP ONE (15:53)
[2021-02-11] MEDS ORDERED: ISOPROTERENOL 250 MCG/1.25 ML SYR IV ONE (15:53)
[2021-02-11] MEDS ORDERED: PHENYLEPHRINE-0.9% NACL SYG 1,000 MCG/10 ML SYRINGE ONE (15:53)
[2021-02-11] MEDS ORDERED: GLYCOPYRROLATE 0.2 MG/ML 2 ML VIAL ONE (15:53)
[2021-02-11] MEDS ORDERED: HEPARIN SODIUM (1,000 UNIT/ML) 1,000 UNIT in SODIUM CHLORIDE 0.9% 1,000 ML IRRIGATION ONE (16:41)
[2021-02-11] MEDS ORDERED: HEPARIN SOD,PORK IN 0.45% NACL 25,000 UNIT in 0.45% NACL 1 250ML.BAG IV ONE (16:41)
[2021-02-11] MEDS ORDERED: LIDOCAINE 1% INJ 10MG/ML (20 ML MDV) SQ ONE (16:44)
--- NOTE | 2021-02-11 19:05 | P.HPCAR ---
History of Present Illness This is Dr. Trejo dictating an H/P on this patient The patient was interviewed and examined IMPRESSION / ASSESSMENT: History of recurrent syncope Re-admitted once again to [facility] about a week back with an episode of syncope Recurrent palpitations Mild coronary myopathy ejection fraction 45-50%, on Toprol Normal coronary arteries Pulmonary embolism after knee surgery Loop monitor interrogation reveals recurrent episodes of SVT up 176 beats a minute But on the day when he passed out he had no tachycardia or bradycardia [facility] PLAN: Proceed with EP study for recurrent SVT However his episodes of loss of consciousness are not associated with any arrhythmias based on the loop monitor interrogation readings HPI Patient complains of recurrent palpitations line he also complains of recurrent loss of consciousness He admits of loss of consciousness about a week back around or 31 of January However his loop monitor interrogation of this time does not reveal any tachycardia or bradycardia arrhythmias He denies any chest discomfort. No shortness of breath orthopnea PND ROS: No fever chills or rigors, no cough, phlegm or expectoration, no nausea, vomiting or diarrhea, no hematuria, dysuria, no musculoskeletal complaints, no strokes or seizures, no skin lesions. EXAMINATION: Afebrile 97.1F pulse rate in the 90s, blood pressure 140/83 mmHg Breath sounds no rhonchi no crackles normal breath sounds Heart sounds S1 and S2 are normal no murmurs Abdomen is soft Extended is warm no edema REVIEW OF LABS, ECG & MEDICAL DATA Loop monitor interrogation reveals no arrhythmias on the day of his loss of consciousness However it does reveal recurrent episodes of SVT up to 176 beats a minute Coronavirus PCR negative Physical Exam Vitals: Vital Signs Temp Pulse Resp BP Pulse Ox 02/11/21 13:29 97.1 F L 97 18 140/83 96 Intake and Output 02/11/21 02/11/21 02/11/21 06:59 14:59 22:59 Intake Total 1202 Balance 1202 Intake: IV 1202 Other: Weight 130 kg Past Medical History Past Medical History: Atrial Fibrillation, Deep Vein Thrombosis (DVT), GERD/Reflux, Hypertension, Osteoarthritis (OA), Pulmonary Embolus (PE), Skin Disorder Additional Past Medical History / Comment(s): DVT, PE 08/2018, After Total Knee surg 07/2018. Kidney stones, has currently. RLS, neuropathy feet. SEE DR. DORANTES'S H & P, SEE DR. TREJO'S H &P History of Any Multi-Drug Resistant Organisms: None Reported Past Surgical History: Appendectomy, Joint Replacement, Orthopedic Surgery Additional Past Surgical History / Comment(s): Lt Total Knee. Scopes on hali knees, ankles. EGD, Colonoscopy. LT ROTATOR CUFF REPAIR, Past Anesthesia/Blood Transfusion Reactions: No Reported Reaction Smoking Status: Former smoker - Past Family History Mother Family Medical History: Cancer Additional Family Medical History / Comment(s): Colon, stomach CA. Physical Examination Vital Signs Temp Pulse Resp BP Pulse Ox 02/11/21 13:29 97.1 F L 97 18 140/83 96 Intake and Output 02/11/21 02/11/21 02/11/21 06:59 14:59 22:59 Intake Total 1202 Balance 1202 Intake: IV 1202 Other: Weight 130 kg Results Current Medications Generic Name Dose Route Start Last Admin Trade Name Freq PRN Reason Stop Dose Admin Sodium Chloride 1,000 mls @ 20 mls/hr 02/11/21 05:58 02/11/21 13:10 Saline 0.9% IV 03/13/21 05:59 850 mls .Q24H ETIENNE Administration Intake and Output 02/11/21 02/11/21 02/11/21 06:59 14:59 22:59 Intake Total 1202 Balance 1202 Intake: IV 1202 Other: Weight 130 kg Patient Weight 02/12/21 06:59 Weight 130 kg
--- NOTE | 2021-02-11 19:07 | P.EPPROC ---
- EP Procedure Note Electrophysiology Procedure Note: Loop monitor interrogation in person Patient complained of syncope around January 31. The loop monitor was interrogated The patient had recurrent episodes of SVT up to 176 beats a minute However on the day that he reported a syncopal spell there were no tachycardia or bradycardia arrhythmias In addition no bradycardia arrhythmias noted No ventricular arrhythmias noted Impression Recurrent episodes of palpitations correspond SVT up to 176-180 beats a minute No bradycardia arrhythmias On the day when he recently reported Syncope, neither tachycardia no bradycardia arrhythmias
[2021-02-11] MEDS ORDERED: ALPRAZolam 0.5 MG TAB PO PRN (19:09)
[2021-02-11] MEDS ORDERED: ACETAMINOPHEN TAB 325 MG TAB PO PRN (19:09)
--- NOTE | 2021-02-11 19:27 | P.PRLE ---
RE: Gustavo Campo Dear Earl Asencio underwent a diagnostic EP study which revealed a rhythm consistent with typical atrial flutter in paroxysms It appears that he may also have reverse typical atrial flutter which would degenerate into atrial fibrillation and then organizing for typical atrial flutter He underwent atrial flutter ablation at this point Thereafter I could not induce any rhythm on Isuprel However he does have a mild cardio myopathy and we will watch for any episodes of atrial fibrillation the future since he has a loop monitor He was admitted to [facility] about a week back to its 30 of January when he had an episode of syncope The loop monitor did not reveal any tachycardia or bradycardia arrhythmias It did show recurrent episodes of SVT but not in the day when he had the syncope However since he has atrial flutter and a tendency for atrial fibrillation as well as her current myopathy I will anticoagulate this gentleman with xarelto Since he is a current myopathy would also continue Toprol-XL He'll continue to follow with you and Dr. Duncan as before Thank you for entrusting me with the care of the patient Warm regards Sincerely Frankie Trejo
[2021-02-11] MEDS ORDERED: LACTATED RINGERS 1,000 ML IV ONE (19:42)
[2021-02-11] MEDS ORDERED: ACETAMINOPHEN IV (For NPO) 1,000 MG in EMPTY BAG 1 BAG IVPB ONE (20:00)
--- NOTE | 2021-02-11 20:06 | CE ---
CARDIAC ELECTROPHYSIOLOGY REPORT This is a 50-year-old male patient of Dr. Duncan and Dr. Helms who has had recurrent palpitations as well as recurrent syncope. The loop monitor was implanted and SVT was documented at approximately 176-188 beats per minute. This was a regular tachycardia. However, he had a recent episode of syncope, but no tachybrady arrhythmias were documented. He has a history of mild cardiomyopathy and is on Toprol. He has a past history of pulmonary embolism related to knee surgery. PROCEDURE: The patient was brought to the EP lab in a fasting state. Written informed consent was obtained prior to the procedure. The right and left groins were prepped and draped as per protocol. Venous sheaths were placed in the right and left femoral veins. Via these, diagnostic mapping and ablation catheters were placed and intracardiac echo catheter was placed. First diagnostic catheters were placed in the high right atrium, His bundle area, right ventricle and coronary sinus. The patient was in sinus rhythm at the start of the study. Sinus cycle length 757 milliseconds, UT interval 138 milliseconds, QRS 91 and QT 378 milliseconds. AH 60 millisecond and HV interval 41 milliseconds. Sinus node recovery times of 600, 500, and 400 milliseconds were 1181, 1083 and 1089 milliseconds. Corresponding corrected sinus node recovery times within normal limits. AV node Wenckebach block 300 milliseconds. No evidence for slow pathway conduction. No delta waves noted. VA Wenckebach block greater than 600 milliseconds. With atrial extra stimulation from the high right atrium, an atrial tachycardia with negative P-waves in V1 were noted. The tachycardia cycle length was slightly irregular, but approximately 245 milliseconds. This was repeatedly inducible with atrial extra stimulation from the high right atrium. However, after several minutes, this tachycardia would degenerate into atrial fibrillation and then organize into a rhythm that looked more like atrial flutter and then finally terminate. This was a repetitive pattern. Isuprel was used during this tachycardia and it quickly degenerated into atrial fibrillation. Therefore, Isuprel was stopped at that point. An intracardiac echo catheter was placed. Mapping and ablation catheters were placed in the in the right atrium and right atrial tachycardia was induced once again. 3D and electroanatomic mapping was performed and a broad area of activation was noted in the mid lateral right atrium. There was no phrenic nerve stimulation at this point. However, unipolar electrograms at this point in this area revealed positive signals. Therefore it appeared that this was more of a wave front and perhaps may represent reverse typical atrial flutter. Therefore, since we had evidence of typical atrial flutter, we proceed with an atrial flutter ablation first. Intracardiac echo cardiography was performed. The cava tricuspid isthmus was delineated. An RF ablation was performed along the cava tricuspid isthmus and a complete line of block was made. This bidirectional block was proven with differential pacing. The isthmus conduction time greater than 153 milliseconds. Thereafter, the atrial extra stimulation was performed and no further tachycardia was induced, high-dose Isuprel was infused. No further atrial tachycardia was induced. However, the patient at this point was under general anesthesia, whereas previously during the original diagnostic EP study, he was awake. All catheters were then removed. Intracardiac echo revealed absence of any pericardial effusion of the right atrium or the right ventricle. Venous sheaths were closed with the vascular plugs and the patient tolerated the procedure well without any acute complications. IV heparin was used during the procedure and we will start him on Xarelto. Since the patient has mild cardiomyopathy, he should remain on anticoagulation lifelong. MMODL / IJN: [id number] /
[2021-02-11] MEDS ORDERED: RIVAROXABAN 20 MG TAB PO SCH (21:00)
[2021-02-11] MEDS: GABAPENTIN 300 MG CAP PO SCH (22:26)
[2021-02-12] MEDS: GABAPENTIN 300 MG CAP PO SCH (07:46)
[2021-02-12 08:30] VITALS: BP 116/76; PULSE 80; RESP 16; TEMP 97.4
--- NOTE | 2021-02-12 08:30 | P.DS ---
Providers Attending physician: Frankei Trejo Primary care physician: [facility] Course: Patient is doing well Resting comfortably in bed he does have a little bit of sore throat No chest discomfort no dizziness no lightheadedness Rhythm is normal in the 70s and 80s Blood pressures in normal range Heart sounds are normal and regular no murmurs No JVD Groins of healed well bilaterally no hematoma No lower extremity edema Clear lungs Impression Diagnostic EP study revealed Likely typical atrial flutter Likely reverse typical atrial flutter Status post cavo tricuspid ablation with a direction block Thereafter his arrhythmias could not be induced He does have PAF He does have a mild cardio myopathy His syncopal spell around Riaz time was not associated with any tachycardia or bradycardia arrhythmias Suggest For now indefinite Xarelto 20 mg daily Maximize beta blockers further to either 75-100 mg by mouth daily Consider adding ASIF inhibitor as and Aldactone Continue monitoring for atrial fibrillation while loop monitor Discharge home today and follow Dr. Duncan Plan - Discharge Summary Discharge Rx Participant: No New Discharge Prescriptions: New Rivaroxaban [Xarelto] 20 mg PO DAILY #90 tab No Action Cholecalciferol (Vitamin D3) [Vitamin D3] 2,000 unit PO DAILY rOPINIRole HCL [Requip] 1 mg PO TID Gabapentin [Neurontin] 600 mg PO QID Super B Complex 1 cap PO DAILY ALPRAZolam [Xanax] 0.5 mg PO BID PRN PRN Reason: Anxiety Metoprolol Succinate (ER) [Toprol Xl] 50 mg PO DAILY Discharge Medication List Cholecalciferol (Vitamin D3) [Vitamin D3] 2,000 unit PO DAILY 01/21/19 [History] Gabapentin [Neurontin] 600 mg PO QID 01/21/19 [History] Super B Complex 1 cap PO DAILY 01/21/19 [History] rOPINIRole HCL [Requip] 1 mg PO TID 01/21/19 [History] ALPRAZolam [Xanax] 0.5 mg PO BID PRN 02/04/21 [History] Metoprolol Succinate (ER) [Toprol Xl] 50 mg PO DAILY 02/04/21 [History] Rivaroxaban [Xarelto] 20 mg PO DAILY #90 tab 02/11/21 [Rx] Follow up Appointment(s)/Referral(s): Dexter Duncan MD [STAFF PHYSICIAN] - 1 Week Activity/Diet/Wound Care/Special Instructions: Post EP study - Ablation instructions 1. Keep access sites dry for 2 days. 2. No heavy lifting or straining for 2 days. 3. Avoid bending the hips repeatedly for 2 days. 4. You may go up and down stairs slowly Call if the following is noted 1. Bleeding, increasing swelling or pain at the access sites. 2. Increasing chest discomfort, especially upon taking a deep breath. 3. Increasing shortness of breath, at rest or with exertion. 4. Undue cough / phlegm 5. Difficulty or pain while swallowing. 6. Pain or change in color in the extremities. 7. Fever, chills, rigors. 8. Increasing headache or neurologic symptoms. 9. Dizziness, fainting, palpitations New medication Xarelto 20 mg by mouth daily Discharge Disposition: HOME SELF-CARE
[2021-02-12] MEDS ORDERED: METOPROLOL SUCCINATE (ER) 50 MG TAB.ER.24H PO SCH (09:00)
== END 2021-02-12 10:46 | disposition home or self-care (01) ==
LOC: CATHEP 12:45 → 6NMEDSUR 18:45 → CATHEP 02-12 10:46
PROVIDERS: ATTEND Internal Medicine Clinical Cardiac Electrophysiology
DX: I47.1 Supraventricular tachycardia (principal); I48.92 Unspecified atrial flutter; R55 Syncope and collapse; I42.8 Other cardiomyopathies; Z20.822 Contact with and (suspected) exposure to COVID-19; Z72.0 Tobacco use; Z86.711 Personal history of pulmonary embolism; Z82.49 Family history of ischemic heart disease and other diseases of the circulatory system; Z79.899 Other long term (current) drug therapy; Z88.1 Allergy status to other antibiotic agents
CPT/HCPCS: 93623; 93662; 93653; 87635; C1759; C1894; C1769 ×2; C1760; C1766; C1730 ×3; C1732; J2250; J1644 ×3; J2710; J0690; J2001; J3010; J2370; J0330; J2704; 93613; 93620

== ENCOUNTER 2021-07-01 13:50 | Day surgery (SDC) | payer BC ==
[2021-06-30 11:28] VITALS: BMI 36.6
[2021-07-01] MEDS: SODIUM CHLORIDE 0.9% 1,000 ML IV SCH (14:40)
[2021-07-01 16:21] VITALS: RESP 16
[2021-07-01] MEDS ORDERED: HEPARIN SODIUM,PORCINE 10,000 UNIT/ML 1 ML VIAL ONE (17:39)
[2021-07-01] MEDS ORDERED: SUCCINYLCHOLINE CHLORIDE VIAL 200 MG/10 ML VIAL IV ONE (17:39)
[2021-07-01] MEDS ORDERED: PHENYLEPHRINE-0.9% NACL SYG 1,000 MCG/10 ML SYRINGE ONE (17:39)
[2021-07-01] MEDS ORDERED: HYDROmorphone (PF) 1 MG/ML ONE (17:39)
[2021-07-01] MEDS ORDERED: .MORPHINE SULFATE (INJ) 10 MG/ML SYRINGE ONE (17:39)
[2021-07-01] MEDS ORDERED: PROPOFOL 10 MG/ML 20 ML VIAL IV ONE (17:39)
[2021-07-01] MEDS ORDERED: ISOPROTERENOL 250 MCG/1.25 ML SYR IV ONE (17:39)
[2021-07-01] MEDS ORDERED: fentaNYL (PF) 50 MCG/ML 2 ML AMP ONE (17:39)
[2021-07-01] MEDS ORDERED: MIDAZOLAM 2 MG/2 ML VIAL ONE (17:39)
[2021-07-01] MEDS ORDERED: LIDOCAINE 1% INJ 10MG/ML (30 ML VIAL-PF) SQ ONE (18:13)
[2021-07-01] MEDS ORDERED: HEPARIN SOD,PORK IN 0.45% NACL 25,000 UNIT in 0.45% NACL 1 250ML.BAG IV ONE (18:30)
[2021-07-01 20:10] LABS: African American GFR (CKD) >90 (>60 ml/min/1.73 sqM); Anion Gap 7 mmol/L; Blood Urea Nitrogen 10 mg/dL (9-20); Calcium 8.7 mg/dL (8.4-10.2); Carbon Dioxide 26 mmol/L (22-30); Chloride 105 mmol/L (98-107); Glucose 106 mg/dL (74-99); Non-African American GFR(CKD) >90 (>60 ml/min/1.73 sqM); Potassium 4.7 mmol/L (3.5-5.1); Sodium 138 mmol/L (137-145)
[2021-07-01] MEDS ORDERED: ACETAMINOPHEN TAB 325 MG TAB PO PRN (20:12)
[2021-07-01] MEDS ORDERED: ALPRAZolam 0.5 MG TAB PO PRN (20:14)
[2021-07-01] MEDS ORDERED: IOPAMIDOL-370 100ML BTL INJ ONE (20:15)
--- NOTE | 2021-07-01 20:17 | P.HPCAR ---
History of Present Illness This is Dr. Trejo dictating an H/P on this patient The patient was interviewed and examined IMPRESSION / ASSESSMENT: Recurrent and paroxysmal atrial fibrillation Loop monitor indicates organized atrial tachycardia of cycle length 340-350 ms A rapid atrial tachycardia 300 ms Mild nonischemic cardio myopathy Normal coronary arteries Symptomatic episodes of atrial fibrillation PLAN: Diagnostic EP study to induce atrial tachycardia Pulmonary vein isolation Ablation of an any extrapulmonary atrial tachycardia indicated Continue Xarelto Continue metoprolol succinate HPI Patient continues to have episodes of palpitations and as documented episodes of atrial fibrillation and somewhat organized atrial fibrillation/atrial tac hycardia on the loop monitor He denies any chest discomfort no undue shortness of breath dizziness or lightheadedness Orthopnea PND Minimal cough no expectoration no fever chills or rigors ROS: No fever chills or rigors, no cough, phlegm or expectoration, no nausea, vomiting or diarrhea, no hematuria, dysuria, no musculoskeletal complaints, no strokes or seizures, no skin lesions. EXAMINATION: But pressure 113/71 mmHg pulse rate in the 70s Breath sounds are clear no rhonchi no crackles Normal heart sounds regular at this time No JVD No lower extremity edema Increased BMI noted REVIEW OF LABS, ECG & MEDICAL DATA sodium 138, potassium 4.7 BUN 10 and creatinine 0.859 TSH normal at 1.35 Physical Exam Vitals: Vital Signs Temp Pulse Resp BP Pulse Ox 07/01/21 14:30 98.4 F 70 16 113/71 98 Intake and Output 07/01/21 07/01/21 07/01/21 06:59 14:59 22:59 Intake Total 0 Balance 0 Intake: IV 0 Other: Weight 127 kg Past Medical History Past Medical History: Atrial Fibrillation, Deep Vein Thrombosis (DVT), Hyperten thierry, Osteoarthritis (OA), Pulmonary Embolus (PE) Additional Past Medical History / Comment(s): SEE DR. TREJO'S H&P. DVT, PE 08/2018, After Total Knee surg 07/2018. Kidney stones, RLS, neuropathy hali feet. History of Any Multi-Drug Resistant Organisms: None Reported Past Surgical History: Appendectomy, Cardiac Ablation, Joint Replacement, Orthopedic Surgery Additional Past Surgical History / Comment(s): Lt Total Knee. Scopes on hali knees, ankles. EGD, Colonoscopy. LT ROTATOR CUFF REPAIR Past Anesthesia/Blood Transfusion Reactions: No Reported Reaction Past Psychological History: No Psychological Hx Reported Smoking Status: Former smoker Past Alcohol Use History: None Reported Additional Past Alcohol Use History / Comment(s): Smoked few years, very little, quit 1993. Quit alcohol 1993. Past Drug Use History: None Reported - Past Family History Mother Family Medical History: Cancer Additional Family Medical History / Comment(s): Colon, stomach CA. Physical Examination Vital Signs Temp Pulse Resp BP Pulse Ox 07/01/21 14:30 98.4 F 70 16 113/71 98 Intake and Output 07/01/21 07/01/21 07/01/21 06:59 14:59 22:59 Intake Total 0 Balance 0 Intake: IV 0 Other: Weight 127 kg Results 07/01/21 14:10 Comprehensive Metabolic Panel 07/01/21 Range/Units 14:10 Sodium 138 (137-145) mmol/L Potassium 4.7 (3.5-5.1) mmol/L Chloride 105 (98-107) mmol/L Carbon Dioxide 26 (22-30) mmol/L BUN 10 (9-20) mg/dL Creatinine 0.85 (0.66-1.25) mg/dL Glucose 106 H (74-99) mg/dL Calcium 8.7 (8.4-10.2) mg/dL Current Medications Generic Name Dose Route Start Last Admin Trade Name Freq PRN Reason Stop Dose Admin Acetaminophen 650 mg 07/01/21 20:12 Acetaminophen Tab 325 Mg Tab PO 07/31/21 20:13 Q6HR PRN Mild Pain Alprazolam 0.5 mg 07/01/21 20:14 Alprazolam 0.5 Mg Tab PO 07/31/21 20:15 BID PRN Anxiety Lactated Ringer's 1,000 mls @ 20 mls/hr 07/01/21 06:49 Lactated Ringers IV 07/31/21 06:50 .Q24H ETIENNE Sodium Chloride 1,000 mls @ 50 mls/hr 07/01/21 06:49 07/01/21 14:40 Saline 0.9% IV 07/31/21 06:50 0 mls .Q20H ETIENNE Administration Acetaminophen 1,000 mg/ IV 100 mls @ 400 mls/hr 07/01/21 20:12 Solution IVPB 07/01/21 20:26 ONCE ONE Non-Formulary Medication 600 mg 07/01/21 22:00 Gabapentin [Neurontin] PO 07/31/21 22:01 QID ETIENNE Rivaroxaban 20 mg 07/01/21 21:00 Rivaroxaban 20 Mg Tab PO 07/31/21 21:01 HS [facility] Protocol Ropinirole HCl 0.25 mg 07/01/21 21:00 Ropinirole Hcl 1 Mg Tab PO 07/31/21 21:01 HS [facility] Sodium Chloride 12 ml 07/01/21 20:12 Sodium Chloride 0.9% Flush 10 Ml Syringe IV 07/31/21 20:13 Q12HR PRN Line Flush Intake and Output 07/01/21 07/01/21 07/01/21 06:59 14:59 22:59 Intake Total 0 Balance 0 Intake: IV 0 Other: Weight 127 kg Patient Weight 07/02/21 06:59 Weight 127 kg 07/01/21 14:10
--- NOTE | 2021-07-01 20:23 | P.EPPROC ---
- EP Procedure Note Electrophysiology Procedure Note: PROCEDURE A. fib ablation/PVI DIAGNOSIS Paroxysmal Atrial fibrillation, symptomatic, refractory to therapy Possible atrial tachycardia RESULT No left atrial appendage mass seen on intracardiac echo, normal LV function Normal left atrial size, large left-sided pulmonary veins Attempted induction of atrial tachycardia, no inducible atrial tachycardia or reentry Successful A. fib ablation/pulmonary vein isolation of all veins using cryo- ablation Complete entrance block in all 4 veins confirmed Vagal response noted during ablation of left superior pulmonary vein with bradycardia less than 40 beats a minute No evidence for phrenic nerve injury Esophageal deflection NO PROCEDURE DETAILS Patient was brought to the EP lab in a fasting state after obtaining written informed consent. Procedure performed under general anesthesia Esophagus was intubated. Esophageal temperature monitoring with circa catheter. Esophageal deflection with an endoscope to avoid hypothermia of the esophagus. After initial muscle relaxant use, muscle relaxants were not given thereafter in order to assess phrenic nerve during procedure. Patient prepped and draped as per protocol Cryo ablation-set up with standard preparation of the cryoablation tools done. Femoral Venous access obtained on the right and left groins and sheaths placed Diagnostic catheters for the high right atrium, phrenic nerve stimulation and pacing, His bundle, coronary sinus placed Intracardiac echo catheter placed. Long sheath placed in the right atrium Left and right transseptal catheterization performed under intracardiac echo guidance. Intravenous heparin with aCT above 300 Later, catheter positioning and balloon positioning in the left atrium and pulmonary veins, under intracardiac echo guidance Diagnostic EP study with coronary sinus pacing and recording Baseline measurements: Sinus cycle length 970 ms, SD interval 159 ms, QRS 99 and QT 451 ms Sinus node recovery times at 600, 504 100 ms were 1460, 1498 and 1487 ms. Corrected sinus node recovery times were less than 500 ms AV node Wenckebach block 330 ms AH 48 ms and HV interval 41 ms Burst stimulation from the coronary sinus distal from 400 ms down to 200 ms. No inducible atrial tachycardia Atrial extra stimulation with double extra stimuli a no inducible atrial fibrillation other than very brief few beats of atrial fibrillation High-dose Isuprel employed. No inducible atrial tachycardia and atrial fibrillation Transseptal catheterization performed RA pressure 10/4/70 LA pressure 19/10/12 No phrenic nerve stimulation noted within the right superior pulmonary vein Transseptal catheterization performed with standard sheath. The cryoablation sheath was then placed with an over the wire exchange without any acute complications. The cryoablation balloon was placed in the office of each pulmonary vein and all 4 pulmonary veins were isolated. IV dye was injected to confirm occlusion. Goal: achieve complete occlusion of the pulmonary vein, achieve -30 degrees C at 30 seconds and achieve -40 degrees C at 60 seconds and a time to effect of less than 60 seconds. If not, the balloon was repositioned to obtain this result After completion of Cryoblation with durations from 180-240 seconds, entrance block was confirmed with the Attain circular catheter in a roving fashion around the antrum of the pulmonary veins Phrenic nerve pacing was performed from the SVC, right innominate vein area and diaphragm voltage was monitored. Diaphragmatic contractions were also monitored manually for strength of contraction. At the end of the procedure the Achieve catheter was once again used to check for entrance block Phrenic nerve stimulation was performed to confirm diaphragmatic stimulation the end of the procedure Cine fluoroscopy was performed at the very end of the procedure to confirm movement of both diaphragms with inspiration and expiration At the end of the procedure the patient was extubated Venous sheaths were removed and hemostasis assured with a closure device PROCEDURES PERFORMED Diagnostic EP study with attempted atrial tachycardia induction CS pacing and recording Left and right transseptal catheterization Catheter the mapping of the tachycardia Intracardiac echocardiography Pulmonary vein isolation with transseptal and comprehensive EPS, [id number] Drug infusion, [id number]
--- NOTE | 2021-07-01 20:25 | P.PRLE ---
RE: Gustavo Campo Dear Earlclara Chen underwent pulmonary vein isolation for management of paroxysmal atrial fibrillation No inducible atrial tachycardia was noted before or after the ablation His left atrium is a fairly normal size although his left-sided veins are quite large LA and RA pressures were also fairly normal A vagal response was noted during ablation of the left superior pulmonary vein which is a good prognostic sign All veins are completely isolated He should continue metoprolol and Xarelto for now Thank you for entrusting me with the care of the patient Warm regards Sincerely Frankie Trejo
[2021-07-01] MEDS ORDERED: HYDROmorphone 0.5 MG/0.5 ML SYRINGE IVP ONE (20:50)
[2021-07-01] MEDS ORDERED: ACETAMINOPHEN IV (For NPO) 1,000 MG/100 ML VIAL IVPB ONE (20:50)
[2021-07-01] MEDS ORDERED: SODIUM CHLORIDE 0.9% 1,000 ML IV ONE (20:50)
[2021-07-01] MEDS ORDERED: ACETAMINOPHEN IV (For NPO) 1,000 MG in EMPTY BAG 1 BAG IVPB ONE (21:00)
[2021-07-01] MEDS ORDERED: RIVAROXABAN 20 MG TAB PO SCH (21:00)
[2021-07-01] MEDS: LACTATED RINGERS 1,000 ML IV SCH (22:16)
[2021-07-01] MEDS: GABAPENTIN 300 MG CAP PO SCH (22:16)
[2021-07-02] MEDS: SODIUM CHLORIDE 0.9% 1,000 ML IV SCH (02:57)
[2021-07-02] MEDS: LACTATED RINGERS 1,000 ML IV SCH (08:25)
[2021-07-02] MEDS: GABAPENTIN 300 MG CAP PO SCH ×2 (08:34→12:41)
--- NOTE | 2021-07-02 10:00 | DS ---
DISCHARGE SUMMARY This is a 50-year-old male patient who underwent pulmonary vein isolation yesterday. He is doing well today. No chest discomfort. Mild sore throat. No undue shortness of breath. Resting comfortably in bed. His groins have healed well. No hematoma. Heart sounds are normal. Breath sounds are clear. No rhonchi. No crackles. Blood pressure 115/77 mmHg, pulse rate in the 50s. IMPRESSION: 1. Paroxysmal atrial fibrillation. 2. Non-ischemic cardiomyopathy, mild. 3. Normal left atrial size with near-normal left atrial and right atrial pressures. 4. Obesity; BMI 38. 5. Past history of atrial flutter, status post successful ablation. PLAN: Continue anticoagulation. Discharge home today. Instructions were given and he will see Dr. Haq next week. MMODL / IJN: [id number] /
[2021-07-02 13:32] VITALS: BP 126/81; PULSE 86; TEMP 98.2
== END 2021-07-02 13:13 | disposition home or self-care (01) ==
LOC: CATHEP 13:50 → 6NMEDSUR 20:00 → CATHEP 07-02 13:13
PROVIDERS: ATTEND Internal Medicine Clinical Cardiac Electrophysiology
DX: I48.0 Paroxysmal atrial fibrillation (principal); I42.8 Other cardiomyopathies; I47.1 Supraventricular tachycardia; Z72.0 Tobacco use; Z20.822 Contact with and (suspected) exposure to COVID-19; E66.9 Obesity, unspecified; Z68.38 Body mass index [BMI] 38.0-38.9, adult; G25.81 Restless legs syndrome; I10 Essential (primary) hypertension; M19.90 Unspecified osteoarthritis, unspecified site; Z90.49 Acquired absence of other specified parts of digestive tract; Z96.652 Presence of left artificial knee joint; Z98.890 Other specified postprocedural states; Z86.718 Personal history of other venous thrombosis and embolism; Z86.711 Personal history of pulmonary embolism; Z87.442 Personal history of urinary calculi; G62.9 Polyneuropathy, unspecified; Z79.01 Long term (current) use of anticoagulants; Z79.899 Other long term (current) drug therapy; Z88.1 Allergy status to other antibiotic agents; Z88.3 Allergy status to other anti-infective agents
CPT/HCPCS: 93623; 93656; 80048; 84443; 87635; C1894 ×2; C1769 ×4; C1760; C1730 ×2; C1759; C1893; C1733; C1766; J2250; J0330; J1644 ×2; J2270; J2001; J3010; J1170 ×2; J0131; J2370; J2704; Q9967

== ENCOUNTER → 2021-09-14 | Outpatient (CLI) | payer BC ==
--- NOTE | 2021-09-14 13:08 | CT ---
EXAMINATION TYPE: CT chest w con DATE OF EXAM: 09/14/2021 COMPARISON: None HISTORY: 50-year-old male status post ablation in June, has had chronic cough since. R06.02, shortness of breath. TECHNIQUE: Contiguous axial scanning of the chest after the administration of 100 mL of Isovue 300. Coronal/sagittal reconstructions performed. CT DLP: 609.60mGycm. Automatic exposure control utilized for a dose reduction. FINDINGS: Loop recorder device along the anterior left paramedian chest. Heart normal size with trace pericardial fluid. Mildly ectatic aorta 3.7 cm. Bovine configuration to the aortic arch. No thoracic lymphadenopathy by CT size criteria. No mediastinal or hilar soft tissue abnormality seen . Some strandy atelectasis or scarring at the left base. No consolidation or pleural effusion. Visualized upper abdomen shows slightly diminished attenuation of the hepatic parenchyma suggesting u nderlying fatty infiltration. Bones: DISH within the mid to lower thoracic spine. IMPRESSION: Some strandy scarring or atelectasis at the left base. No acute pulmonary process.
== END | disposition home or self-care (01) ==
LOC: RADCTMAIN 11:30
PROVIDERS: ATTEND Internal Medicine
DX: R06.02 Shortness of breath (principal)
CPT/HCPCS: 71260; Q9967

== ENCOUNTER 2022-05-05 05:36 | Observation (INO) | payer BC ==
[2022-05-05 06:18] LABS: Basophils # (A) 0.1 k/uL (0-0.2); Basophils % (A) 1 %; Eosinophils # (A) 0.1 k/uL (0-0.7); Eosinophils % (A) 2 %; HCT 42.3 % (39.0-53.0); HGB 14.9 gm/dL (13.0-17.5); Lymphocytes # (A) 3.2 k/uL (1.0-4.8); Lymphocytes % (A) 42 %; MCH 32.1 pg (25.0-35.0); MCHC 35.2 g/dL (31.0-37.0); MCV 91.3 fL (80.0-100.0); Mean Platelet Volume 8.1; Monocytes # (A) 0.5 k/uL (0-1.0); Monocytes % (A) 6 %; Neutrophils # (A) 3.7 k/uL (1.3-7.7); Neutrophils % (A) 48 %; Platelet Count 191 k/uL (150-450); RBC 4.63 m/uL (4.30-5.90); RDW 13.4 % (11.5-15.5); WBC 7.7 k/uL (3.8-10.6)
--- NOTE | 2022-05-05 06:18 | XR ---
EXAMINATION TYPE: XR chest 2V DATE OF EXAM: 05/05/2022 COMPARISON: Chest CT September 14, 2021 HISTORY: Chest pain. TECHNIQUE: Frontal and lateral views of the chest are obtained. FINDINGS: There is no focal air space opacity, pleural effusion, or pneumothorax seen. Cardiomegaly with overlying loop recorder is seen. Bridging osteophytes in the thoracic spine are redemonstrated. IMPRESSION: Cardiomegaly without acute pulmonary process.
--- NOTE | 2022-05-05 06:19 | ED ---
Chest Pain HPI - General Chief Complaint: Chest Pain Stated Complaint: Chest Pain Time Seen by Provider: 05/05/22 06:02 Source: patient, RN notes reviewed, old records reviewed Mode of arrival: EMS Limitations: no limitations - History of Present Illness Initial Comments: 51-year-old male presents emergency Department with chief complaint of chest pain. Patient states it woke him up he did receive aspirin and nitro by EMS which alleviated his pain. Patient states that he's had [address] Saravia states he is on Xarelto for his A. fib. Patient states he did have cardiac cath a few years ago which was negative at that time. Patient states she's never experienced pain like this before it's have some family history of diabetes, cancer. Patient does complain of some right-sided abdominal plain states his chest pain is alleviated after the nitro denies feeling short of breath states she's had a chronic cough since his ablation. - Related Data Home Medications Medication Instructions Recorded Confirmed Cholecalciferol (Vitamin D3) 2,000 unit PO DAILY 01/21/19 07/01/21 [Vitamin D3] Gabapentin [Neurontin] 600 mg PO QID 01/21/19 07/01/21 Super B Complex 1 cap PO DAILY 01/21/19 07/01/21 rOPINIRole HCL [Requip] 0.25 mg PO HS 01/21/19 07/01/21 ALPRAZolam [Xanax] 0.5 mg PO BID PRN 02/04/21 06/30/21 Metoprolol Succinate (ER) [Toprol 50 mg PO HS 02/04/21 07/01/21 XL] Rivaroxaban [Xarelto] 20 mg PO HS 07/01/21 07/01/21 Allergies Allergy/AdvReac Type Severity Reaction Status Date / Time levofloxacin [From Levaquin] Allergy Rash/Hives Verified 06/30/21 11:22 metronidazole [From Flagyl] Allergy Rash/Hives Verified 06/30/21 11:22 Review of Systems ROS Statement: Those systems with pertinent positive or pertinent negative responses have been documented in the HPI. ROS Other: All systems not noted in ROS Statement are negative. EKG Findings - EKG Comments: EKG Findings:: EKG performed at 5.42 sinus bradycardia rate of 55 AK 169 QRS is 90 QT/QTC 435/423 - EKG Results: EKG: interpreted by WERNER Past Medical History Past Medical History: Atrial Fibrillation, Deep Vein Thrombosis (DVT), Hypertension, Osteoarthritis (OA), Pulmonary Embolus (PE) Additional Past Medical History / Comment(s): DVT, PE 08/2018, After Total Knee surg 07/2018. Kidney stones, RLS, neuropathy feet. SEE DR. DORANTES'S H & P, SEE DR. NEGRETE'S H &P History of Any Multi-Drug Resistant Organisms: None Reported Past Surgical History: Appendectomy, Joint Replacement, Orthopedic Surgery Additional Past Surgical History / Comment(s): Lt Total Knee. Scopes on hali knees, ankles. EGD, Colonoscopy. LT ROTATOR CUFF REPAIR Past Anesthesia/Blood Transfusion Reactions: No Reported Reaction Past Psychological History: No Psychological Hx Reported Smoking Status: Former smoker Past Alcohol Use History: None Reported Past Drug Use History: None Reported - Past Family History Mother Family Medical History: Cancer Additional Family Medical History / Comment(s): Colon, stomach CA. General Exam Limitations: no limitations General appearance: alert, in no apparent distress Head exam: Present: atraumatic, normocephalic, normal inspection ENT exam: Present: normal exam, mucous membranes moist Neck exam: Present: normal inspection. Absent: tenderness, meningismus, lymphadenopathy Respiratory exam: Present: normal lung sounds bilaterally. Absent: respiratory distress, wheezes, rales, rhonchi, stridor Cardiovascular Exam: Present: regular rate, normal rhythm, normal heart sounds. Absent: systolic murmur, diastolic murmur, rubs, gallop, clicks GI/Abdominal exam: Present: soft, tenderness, normal bowel sounds. Absent: distended, guarding, rebound, rigid Back exam: Absent: CVA tenderness (R), CVA tenderness (L) Neurological exam: Present: alert Course Vital Signs 05/05/22 05/05/22 05:46 07:01 Temperature 96.8 F L Pulse Rate 56 L 60 Respiratory 16 18 Rate Blood Pressure 114/83 117/75 O2 Sat by Pulse 100 99 Oximetry Chest Pain MDM - MDM Was pt. sent in by a medical professional or institution (, PA, MANAGER INTERNATIONAL, urgent care, hospital, or correction...) When possible be specific @ -[No] Did you speak to anyone other than the patient for history (EMS, parent, family, police, friend...)? What history was obtained from this source @ -[EMS] Did you review nursing and triage notes (agree or disagree)? Why? @ -[I reviewed and agree with nursing and triage notes] Were old charts reviewed (outside hosp., previous admission, EMS record, old EKG, old radiological studies, urgent care reports/EKG's, correction records)? Report findings @ -[Prior laboratory studies, heart catheterization] Differential Diagnosis (chest pain, altered mental status, abdominal pain women, abdominal pain men, vaginal bleeding, weakness, fever, dyspnea, syncope, headache, dizziness, GI bleed, back pain, seizure, CVA, palpatations, mental health, musculoskeletal)? @ -[Differential Chest Pain: Stable Angina, Unstable Angina, STEMI, NSTEMI Aortic Dissection, Pneumothorax, Musculoskeletal, Esophageal Spasm GERD, Cholecystitis, Pancreatitis, Zoster, this is not meant to be an all-inclusive list. ble] EKG interpreted by me (3pts min.). @ -[As above] X-rays interpreted by me (1pt min.). @ -[Chest x-ray shows no acute process] CT interpreted by me (1pt min.). @ -[None done] U/S interpreted by me (1pt. min.). @ -[Ultrasound was unremarkable of the gallbladder, mild fatty liver disease] What testing was considered but not performed or refused? (CT, X-rays, U/S, labs)? Why? @ -[None] What meds were considered but not given or refused? Why? @ -[None] Did you discuss the management of the patient with other professionals (professionals i.e. , PA, MANAGER INTERNATIONAL, lab, RT, psych nurse, social studies teacher, stoker installation mechanic, teacher, planned giving officer, corrections caseworker)? Give summary @ -[Dr. Helms for admission] Was smoking cessation discussed for >3mins.? @ -[No] Was critical care preformed (if so, how long)? @ -[No] Were there social determinants of health that impacted care today? How? (Homelessness, low income, unemployed, alcoholism, drug addiction, transportation, low edu. Level, literacy, decrease access to med. care, [facility], rehab)? @ -[No] Was there de-escalation of care discussed even if they declined (Discuss DNR or withdrawal of care, Hospice)? DNR status @ -[No] What co-morbidities impacted this encounter? (DM, HTN, Smoking, COPD, CAD, Cancer, CVA, ARF, Chemo, Hep., AIDS, mental health diagnosis, sleep apnea, morbid obesity)? @ -[A. fib, family heart disease] Was patient admitted / discharged? Hospital course, mention meds given and route, prescriptions, significant lab abnormalities, going to OR and other pertinent info. @ -[Admitted patient had chest pain was alleviated with nitro patient's initial workup was negative. I did discuss case with PCP who accepts admission. Patient will cardiac rule out cardiology consult] Undiagnosed new problem with uncertain prognosis? @ -[No] Drug Therapy requiring intensive monitoring for toxicity (Heparin, Nitro, Insulin, Cardizem)? @ -[No] Were any procedures done? @ -[No] Diagnosis/symptom? @ -[Chest pain] Acute, or Chronic, or Acute on Chronic? @ -[Acute] Uncomplicated (without systemic symptoms) or Complicated (systemic symptoms)? @ -[Uncomplicated] Side effects of treatment? @ -[No] Exacerbation, Progression, or Severe Exacerbation? @ -[No] Poses a threat to life or bodily function? How? (Chest pain, [place], [place], pneumonia, PE, COPD, DKA, ARF, appy, cholecystitis, CVA, Diverticulitis, Homicidal, Suicidal, threat to staff... and all critical care pts) @ -[yes patient has chest pain can lead to cardiac arrest Disposition Clinical Impression: Chest pain Disposition: ADMITTED IP TO THIS HOSP Condition: Fair Referrals: Earl Helms MD [Primary Care Provider] - 1-2 days Time of Disposition: 08:08
[2022-05-05 06:28] LABS: INR 1.2 (<1.2); Partial Thromboplastin Time 29.7 sec (22.0-30.0); Prothrombin Time 12.6 sec (9.0-12.0)
[2022-05-05 06:33] LABS: ALT 28 U/L (4-49); AST 22 U/L (17-59); African American GFR (CKD) >90 (>60 ml/min/1.73 sqM); Albumin 3.7 g/dL (3.5-5.0); Alkaline Phosphatase 72 U/L (38-126); Anion Gap 6 mmol/L; Blood Urea Nitrogen 12 mg/dL (9-20); Calcium 8.5 mg/dL (8.4-10.2); Carbon Dioxide 25 mmol/L (22-30); Chloride 108 mmol/L (98-107); Glucose 116 mg/dL (74-99); Magnesium 1.9 mg/dL (1.6-2.3); Non-African American GFR(CKD) >90 (>60 ml/min/1.73 sqM); Potassium 4.3 mmol/L (3.5-5.1); Sodium 139 mmol/L (137-145); Total Bilirubin 0.7 mg/dL (0.2-1.3); Total Protein 6.4 g/dL (6.3-8.2)
--- NOTE | 2022-05-05 07:46 | US ---
EXAMINATION TYPE: US gallbladder DATE OF EXAM: 05/05/2022 COMPARISON: CT 2020 CLINICAL HISTORY: pain. Pain intermittently within the right side x 24 hours. Hx appendectomy, kidney stone. TECHNIQUE: Multiple sonographic images of the right upper quadrant are obtained. FINDINGS: EXAM MEASUREMENTS: Liver Length: 18.7 cm Gallbladder Wall: 0.29 cm CBD: 0.59 cm Right Kidney: 12.5 x 6.1 x 5.7 cm PE TEACHER NOTES: Exam is limited due to overlying bowel gas and patient body habitus. Pancreas: Not well seen. Liver: Appears enlarged with increased echogenicity. Appears very coarse/heterogeneous in echotextur e. Hypoechoic area seen adjacent to the gallbladder: 2.1 x 1.8 x 0.8 cm. Gallbladder: Appears wnl Evidence for sonographic Delaney's sign: No CBD: Portions seen measure upper limits. Right Kidney: No hydronephrosis or masses seen. Appears slightly enlarged. IMPRESSION: 1. Hepatic steatosis with suggested focal fatty sparing next to gallbladder fossa. Could be confirme d with MRI if clinically warranted. 2. No evidence for acute cholecystitis.
[2022-05-05] MEDS ORDERED: NITROGLYCERIN SL TABS 0.4 MG TAB SUBLINGUAL PRN (08:28)
[2022-05-05] MEDS ORDERED: ALPRAZolam 0.5 MG TAB PO PRN (08:29)
[2022-05-05] MEDS ORDERED: HYDROmorphone 0.5 MG/0.5 ML SYRINGE IVP STA (08:33)
[2022-05-05] MEDS ORDERED: ONDANSETRON 4 MG/2 ML VIAL IVP STA (08:33)
[2022-05-05] MEDS: GABAPENTIN 300 MG CAP PO SCH ×4 (11:39→21:34)
[2022-05-05] MEDS: PANTOPRAZOLE 40 MG/10 ML VIAL IVP SCH (11:39)
--- NOTE | 2022-05-05 11:49 | P.CRDCN ---
History of Present Illness History of present illness: HISTORY OF PRESENT ILLNESS: This is a 51 year old male with a past medical history significant for paroxysmal atrial fibrillation on Xarelto with previous ablation, normal coronary arteries per angiogram, syncope, loop recorder insertion, and PE/DVT. Patient follows in the office with Dr. Dorantes. We have been asked to see the patient in consultation for chest pain. Patient examined at the bedside. Patient states he began having chest discomfort this morning. He also reports that he has been having some right upper and lower quadrant abdominal pain. He states he has felt nauseous. He reports he was mildly SOB with the chest discomfort and his noticed that he looked sweaty. He currently denies chest pain or pressure. * EKG reveals sinus mechanism with no signs of acute ischemia * Chest xray cardiomegaly without acute pulmonary process * Laboratory data: WBC 7.7. Hemoglobin 14.9. Platelet count 191. Sodium 139. Potassium 4.3. BUN 12. Creatinine 0.80. Magnesium 1.9. Troponin negative 2 * Current home cardiac medications include metoprolol succinate 25 mg at night and Xarelto 20 mg at night * Most recent echocardiogram obtained in November 2020 revealed ejection fraction 45-50% with mild MR * Cardiac catheterization history: September 2020 revealing normal coronary arteries REVIEW OF SYSTEMS: At the time of my exam: CONSTITUTIONAL: Denies fever or chills. HEENT: Denies blurred vision, vision changes, or eye pain. Denies hemoptysis CARDIOVASCULAR: Denies chest pain. Denies orthopnea. Denies PND. Denies p alpitations RESPIRATORY: Denies shortness of breath. GASTROINTESTINAL: Denies abdominal pain. Denies nausea or vomiting. HEMATOLOGIC: Denies bleeding disorders. GENITOURINARY: Denies any blood in urine. SKIN: Denies pruitis. Denies rash. PHYSICAL EXAM: VITAL SIGNS: Reviewed. GENERAL: Well-developed in no acute distress. HEENT: Head is normocephalic. Pupils are equal, round. Sclerae anicteric. Mucous membranes of the mouth are moist. Neck supple. No JVD or thyromegaly LUNGS: Respirations even and unlabored. Lungs essentially clear to auscultation bilaterally. HEART: Regular rate and rhythm. S1 and S2 heard. ABDOMEN: Soft. Nondistended. Right sided abdominal tenderness. EXTREMITIES: Normal range of motion. No clubbing or cyanosis. Peripheral pulses intact. No lower extremity edema NEUROLOGIC: Awake and alert. Oriented x 3. ASSESSMENT: Chest pain, troponin x 2 Right upper quadrant abdominal pain Normal coronary arteries, per cardiac catheterization September 2020 Mild nonischemic cardiomyopathy ejection fraction 45% History of syncope History of SVT History of loop recorder insertion, [employer] History of PE Paroxysmal atrial fibrillation History of atrial fib/atrial flutter ablation, July 2021 PLAN: 2D echo ordered. Await results. An acute coronary event has been ruled out Resume home cardiac medications Add amylase and lipase Await surgical evaluation No further testing from a cardiology standpoint Patient to follow up outpatient with Dr. Dorantes Nurse practitioner note has been reviewed by physician. Signing provider agrees with the documented findings, assessment, and plan of care. Past Medical History Past Medical History: Atrial Fibrillation, Deep Vein Thrombosis (DVT), Hypertension, Osteoarthritis (OA), Pulmonary Embolus (PE) Additional Past Medical History / Comment(s): DVT, PE 08/2018, After Total Knee surg 07/2018. Kidney stones, RLS, neuropathy feet. SEE DR. DORANTES'S H & P, SEE DR. NEGRETE'S H &P History of Any Multi-Drug Resistant Organisms: None Reported Past Surgical History: Appendectomy, Joint Replacement, Orthopedic Surgery Additional Past Surgical History / Comment(s): Lt Total Knee. Scopes on hali kne es, ankles. EGD, Colonoscopy. LT ROTATOR CUFF REPAIR Past Anesthesia/Blood Transfusion Reactions: No Reported Reaction Past Psychological History: No Psychological Hx Reported Smoking Status: Former smoker Past Alcohol Use History: None Reported Past Drug Use History: None Reported - Past Family History Mother Family Medical History: Cancer Additional Family Medical History / Comment(s): Colon, stomach CA. Medications and Allergies Home Medications Medication Instructions Recorded Confirmed Type Gabapentin [Neurontin] 600 mg PO QID 01/21/19 05/05/22 History rOPINIRole HCL [Requip] 0.25 mg PO HS 01/21/19 05/05/22 History Rivaroxaban [Xarelto] 20 mg PO HS 07/01/21 05/05/22 History Cholecalciferol [Vitamin D3 (25 25 mcg PO DAILY 05/05/22 05/05/22 History Mcg = 1000 Iu)] Metoprolol Succinate (ER) [Toprol 25 mg PO HS 05/05/22 05/05/22 History XL] Vitamin B Complex 1 cap PO DAILY 05/05/22 05/05/22 History Allergies Allergy/AdvReac Type Severity Reaction Status Date / Time levofloxacin [From Levaquin] Allergy Rash/Hives Verified 05/05/22 08:50 all over body metronidazole [From Flagyl] Allergy Rash/Hives Verified 05/05/22 08:50 all over body Physical Exam Vitals: Vital Signs Temp Pulse Resp BP Pulse Ox 05/05/22 07:01 60 18 117/75 99 05/05/22 05:46 96.8 F L 56 L 16 114/83 100 Intake and Output 05/04/22 05/05/22 05/05/22 22:59 06:59 14:59 Other: Weight 125.645 kg Results 05/05/22 05:51 05/05/22 05:51 Cardiac Enzymes 05/05/22 05/05/22 05/05/22 Range/Units 05:51 05:51 08:35 AST 22 (17-59) U/L Troponin I <0.012 <0.012 (0.000-0.034) ng/mL Coagulation 05/05/22 Range/Units 05:51 PT 12.6 H (9.0-12.0) sec APTT 29.7 (22.0-30.0) sec CBC 05/05/22 Range/Units 05:51 WBC 7.7 (3.8-10.6) k/uL RBC 4.63 (4.30-5.90) m/uL Hgb 14.9 (13.0-17.5) gm/dL Hct 42.3 (39.0-53.0) % Plt Count 191 (150-450) k/uL Comprehensive Metabolic Panel 05/05/22 Range/Units 05:51 Sodium 139 (137-145) mmol/L Potassium 4.3 (3.5-5.1) mmol/L Chloride 108 H (98-107) mmol/L Carbon Dioxide 25 (22-30) mmol/L BUN 12 (9-20) mg/dL Creatinine 0.80 (0.66-1.25) mg/dL Glucose 116 H (74-99) mg/dL Calcium 8.5 (8.4-10.2) mg/dL AST 22 (17-59) U/L ALT 28 (4-49) U/L Alkaline Phosphatase 72 (38-126) U/L Total Protein 6.4 (6.3-8.2) g/dL Albumin 3.7 (3.5-5.0) g/dL Current Medications Generic Name Dose Route Start Last Admin Trade Name Freq PRN Reason Stop Dose Admin Alprazolam 0.5 mg 05/05/22 08:29 Alprazolam 0.5 Mg Tab PO BID PRN Anxiety Aspirin 325 mg 05/06/22 09:00 Aspirin 325 Mg Tab PO DAILY ETIENNE Gabapentin 600 mg 05/05/22 09:00 Gabapentin 300 Mg Cap PO QID ETIENNE Metoprolol Succinate 25 mg 05/05/22 21:00 Metoprolol Succinate (Er) 25 Mg Tab.Er.24h PO HS [facility] Nitroglycerin 0.4 mg 05/05/22 08:28 Nitroglycerin Sl Tabs 0.4 Mg Tab SUBLINGUAL Q5M PRN Chest Pain Rivaroxaban 20 mg 05/05/22 21:00 Rivaroxaban 20 Mg Tab PO HS [facility] Protocol Ropinirole HCl 0.25 mg 05/05/22 21:00 Ropinirole Hcl 0.25 Mg Tab PO HS [facility] Intake and Output 05/04/22 05/05/22 05/05/22 22:59 06:59 14:59 Other: Weight 125.645 kg 05/05/22 05:51 05/05/22 05:51
--- NOTE | 2022-05-05 13:08 | P.GSCN ---
History of Present Illness Consult date: 05/05/22 History of present illness: CHIEF COMPLAINT: Chest pain HISTORY OF PRESENT ILLNESS: This is a 51-year-old male who presented to the ER with complaints of chest pain that woke him up around 4 AM this morning. He reports that the pain has moved down to the right upper quadrant. Patient reports that he's had abdominal pain for about 24 hours. He reports nausea, no vomiting. The pain does not worsen with food. Denies any fevers. He has been spent cardiology regarding the chest pain. Acute coronary syndrome ruled out. He is on Xarelto for A. fib. Also has a history of DVT and PE. Past surgical history includes appendectomy. Patient's gallbladder ultrasound had shown hepatic steatosis with focal fatty sparing next to the gallbladder fossa. No evidence for acute cholecystitis. Surgical service consulted in regards to right upper quadrant, lateral abdominal pain. PAST MEDICAL HISTORY: Atrial Fibrillation, Deep Vein Thrombosis (DVT), Hypertension, Osteoarthritis (OA), Pulmonary Embolus (PE) PAST SURGICAL HISTORY: See below MEDICATIONS: See below ALLERGIES: See below SOCIAL HISTORY: No illicit drug use. REVIEW OF SYSTEMS: CONSTITUTIONAL: Denies fever or chills. HEENT: Denies blurred vision, vision changes, or eye pain. Denies hemoptysis CARDIOVASCULAR: Denies chest pain or pressure. RESPIRATORY: No shortness of breath. GASTROINTESTINAL: See HPI for pertinent findings HEMATOLOGIC: Denies bleeding disorders. GENITOURINARY: Denies any blood in urine or increased urinary frequency. SKIN: Denies pruitis. Denies rash. PHYSICAL EXAM: VITAL SIGNS: Reviewed GENERAL: Well-developed in no acute distress. HEENT: No sclera icterus. Extraocular movements grossly intact. Moist buccal mucosa. Head is atraumatic, normocephalic. No nasal drainage. ABDOMEN: Soft. Obese. Nondistended. Tenderness with palpation of the right upper quadrant. No skin rash noted NEUROLOGIC: Alert and oriented. Cranial nerves II through XII grossly intact. LABORATORY DATA: WBC 7.7 HGB 14.9 plt 191 Sodium is 139 potassium is 4.3 creatinine 0.80 Troponins negative 3 LFTs normal Lipase amylase pending IMAGING: gallbladder ultrasound had shown hepatic steatosis with focal fatty sparing next to the gallbladder fossa. Could be confirmed with MRI if clinically warranted. No evidence for acute cholecystitis. ASSESSMENT: 1. Right upper quadrant abdominal pain 2. Chest pain 3. Hepatic steatosis PLAN: -HIDA scan ordered for further evaluation of right upper quadrant abdominal pain and to rule out gallbladder dysfunction -Place patient on a low-fat diet -Continue supportive care -Hold Xarelto in case patient requires surgical intervention Thank you for this consultation Physician Outcomes Specialist note has been reviewed by physician. Signing provider agrees with the documented findings, assessment, and plan of care. Past Medical History Past Medical History: Atrial Fibrillation, Deep Vein Thrombosis (DVT), Hypertension, Osteoarthritis (OA), Pulmonary Embolus (PE) Additional Past Medical History / Comment(s): DVT, PE 08/2018, After Total Knee surg 07/2018. Kidney stones, RLS, neuropathy feet. SEE DR. DORANTES'S H & P, SEE DR. NEGRETE'S H &P History of Any Multi-Drug Resistant Organisms: None Reported Past Surgical History: Appendectomy, Joint Replacement, Orthopedic Surgery Additional Past Surgical History / Comment(s): Lt Total Knee. Scopes on hali knees, ankles. EGD, Colonoscopy. LT ROTATOR CUFF REPAIR Past Anesthesia/Blood Transfusion Reactions: No Reported Reaction Past Psychological History: No Psychological Hx Reported Smoking Status: Former smoker Past Alcohol Use History: None Reported Past Drug Use History: None Reported - Past Family History Mother Family Medical History: Cancer Additional Family Medical History / Comment(s): Colon, stomach CA. Medications and Allergies Home Medications Medication Instructions Recorded Confirmed Type Gabapentin [Neurontin] 600 mg PO QID 01/21/19 05/05/22 History rOPINIRole HCL [Requip] 0.25 mg PO HS 01/21/19 05/05/22 History Rivaroxaban [Xarelto] 20 mg PO HS 07/01/21 05/05/22 History Cholecalciferol [Vitamin D3 (25 25 mcg PO DAILY 05/05/22 05/05/22 History Mcg = 1000 Iu)] Metoprolol Succinate (ER) [Toprol 25 mg PO HS 05/05/22 05/05/22 History XL] Vitamin B Complex 1 cap PO DAILY 05/05/22 05/05/22 History Allergies Allergy/AdvReac Type Severity Reaction Status Date / Time levofloxacin [From Levaquin] Allergy Rash/Hives Verified 05/05/22 08:50 all over body metronidazole [From Flagyl] Allergy Rash/Hives Verified 05/05/22 08:50 all over body Surgical - Exam Vital Signs Temp Pulse Resp BP Pulse Ox 96.8 F L 56 L 16 114/83 100 05/05/22 05:46 05/05/22 05:46 05/05/22 05:46 05/05/22 05:46 05/05/22 05:46 Results - Labs 05/05/22 05:51 05/05/22 05:51 Abnormal Lab Results - Last 24 Hours (Table) 05/05/22 05/05/22 Range/Units 05:51 05:51 PT 12.6 H (9.0-12.0) sec INR 1.2 H (<1.2) Chloride 108 H (98-107) mmol/L Glucose 116 H (74-99) mg/dL Diabetes panel 05/05/22 Range/Units 05:51 Sodium 139 (137-145) mmol/L Potassium 4.3 (3.5-5.1) mmol/L Chloride 108 H (98-107) mmol/L Carbon Dioxide 25 (22-30) mmol/L BUN 12 (9-20) mg/dL Creatinine 0.80 (0.66-1.25) mg/dL Glucose 116 H (74-99) mg/dL Calcium 8.5 (8.4-10.2) mg/dL AST 22 (17-59) U/L ALT 28 (4-49) U/L Alkaline Phosphatase 72 (38-126) U/L Total Protein 6.4 (6.3-8.2) g/dL Albumin 3.7 (3.5-5.0) g/dL Calcium panel 05/05/22 Range/Units 05:51 Calcium 8.5 (8.4-10.2) mg/dL Albumin 3.7 (3.5-5.0) g/dL Pituitary panel 05/05/22 Range/Units 05:51 Sodium 139 (137-145) mmol/L Potassium 4.3 (3.5-5.1) mmol/L Chloride 108 H (98-107) mmol/L Carbon Dioxide 25 (22-30) mmol/L BUN 12 (9-20) mg/dL Creatinine 0.80 (0.66-1.25) mg/dL Glucose 116 H (74-99) mg/dL Calcium 8.5 (8.4-10.2) mg/dL Adrenal panel 05/05/22 Range/Units 05:51 Sodium 139 (137-145) mmol/L Potassium 4.3 (3.5-5.1) mmol/L Chloride 108 H (98-107) mmol/L Carbon Dioxide 25 (22-30) mmol/L BUN 12 (9-20) mg/dL Creatinine 0.80 (0.66-1.25) mg/dL Glucose 116 H (74-99) mg/dL Calcium 8.5 (8.4-10.2) mg/dL Total Bilirubin 0.7 (0.2-1.3) mg/dL AST 22 (17-59) U/L ALT 28 (4-49) U/L Alkaline Phosphatase 72 (38-126) U/L Total Protein 6.4 (6.3-8.2) g/dL Albumin 3.7 (3.5-5.0) g/dL
--- NOTE | 2022-05-05 13:29 | CA ---
Transthoracic Echo Report Name: Gustavo Campo Age: 51 Gender: M : 1970 Exam Date: 05/05/2022 09:17 Exam Location: [facility] Ht (in): 72 Wt (lb): 277 Ordering Physician: Tarik Diaz Attending/Referring Phys: Vertical Borer Nahum Carranza RDCS Procedure CPT: Indications: Chest Pain Cardiac Hx: A. Fib; Obesity; Technical Quality: Poor Contrast 1: Lumason Total Dose (mL): 4 Contrast 2: Total Dose (mL): MEASUREMENTS (Male / Female) Normal Values 2D ECHO LV Diastolic Diameter PLAX 6.0 cm 4.2 - 5.9 / 3.9 - 5.3 cm LV Systolic Diameter PLAX 4.4 cm LV Fractional Shortening PLAX 26.5 % IVS Diastolic Thickness 0.9 cm 0.6 - 1.0 / 0.6 - 0.9 cm IVS Systolic Thickness 1.0 cm LVPW Diastolic Thickness 1.2 cm 0.6 - 1.0 / 0.6 - 0.9 cm LVPW Systolic Thickness 1.4 cm LV Relative Wall Thickness 0.4 LVOT Diameter 2.2 cm LA Systolic Diameter LX 3.4 cm 3.0 - 4.0 / 2.7 - 3.8 cm LV Diastolic Volume MOD BP 92.9 cm??? 67 - 155 / 56 - 104 cm??? LV Systolic Volume MOD BP 54.5 cm??? 22 - 58 / 19 - 49 cm??? LV Ejection Fraction MOD BP 41.4 % >= 55 % LV Stroke Volume MOD BP 38.4 cm??? LV Diastolic Volume MOD 4C 108.1 cm??? LV Systolic Volume MOD 4C 64.1 cm??? LV Ejection Fraction MOD 4C 40.7 % LV Stroke Volume MOD 4C 44.0 cm??? LV Diastolic Length 4C 7.5 cm LV Systolic Length 4C 6.0 cm LV Diastolic Volume MOD 2C 75.6 cm??? LV Systolic Volume MOD 2C 45.4 cm??? LV Ejection Fraction MOD 2C 40.0 % LV Stroke Volume MOD 2C 30.2 cm??? LV Diastolic Length 2C 7.1 cm LV Systolic Length 2C 5.8 cm Ascending Aorta Diameter 2.9 cm M-MODE Aortic Root Diameter MM 3.4 cm LA Systolic Diameter MM 4.1 cm LA Ao Ratio MM 1.2 MV E Point Septal Separation 1.6 cm AV Cusp Separation MM 1.7 cm DOPPLER AV Peak Velocity 92.2 cm/s AV Peak Gradient 3.4 mmHg MV Deceleration [place] 204.7 cm/s??? Mitral E Point Velocity 47.0 cm/s Mitral A Point Velocity 26.9 cm/s Mitral E to A Ratio 1.7 MV Deceleration Time 229.5 ms MV E' Velocity 4.6 cm/s Mitral E to MV E' Ratio 10.2 TR Peak Velocity 99.1 cm/s TR Peak Gradient 3.9 mmHg Right Ventricular Systolic Press 8.9 mmHg PV Peak Velocity 89.6 cm/s PV Peak Gradient 3.2 mmHg FINDINGS Left Ventricle Left ventricular ejection fraction is estimated at 50 %. Right Ventricle Right ventricle at upper limits of normal. Right Atrium Mild right atrial dilatation. Left Atrium Mild left atrial dilatation. Mitral Valve Trace to mild mitral regurgitation. Aortic Valve Trileaflet aortic valve. No aortic stenosis. No aortic regurgitation. Tricuspid Valve Trace to mild tricuspid regurgitation. Pulmonic Valve Structurally normal pulmonic valve. Pericardium Normal pericardium. Echo free space anterior to the right ventricle likely represents a fat pad. Aorta Normal size aortic root and proximal ascending aorta. CONCLUSIONS Left ventricular ejection fraction 50% Trace to mild mitral regurgitation Trace to mild tricuspid regurgitation No pericardial effusion Previewed by: Dr. Juan Jose Haq DO (Electronically Signed) Final Date: 05 May 2022 13:28
[2022-05-05] MEDS ORDERED: traMADol-ACETAMINOP 37.5-325MG 1 EACH TAB PO PRN (16:34)
--- NOTE | 2022-05-05 17:37 | P.HPIM ---
History of Present Illness H&P Date: 05/05/22 Chief Complaint: Chest pain and right lateral upper quadrant abdominal pain This a 51-year-old female with past medical history of atrial fibrillation, ablation, DVT, hypertension, osteoarthritis, PE, renal calculi, neuropathy, former nicotine dependence, former alcohol use presented to the ER with complaints of chest pain and lateral right upper quadrant abdominal pain. R eports the midsternal chest pain woke him up at around 4:30 this morning, radiating to posterior neck, mild shortness of breath , diaphoresis accompanied by fluctuating right lateral upper quadrant abdominal pain and nausea. Denies emesis. Denies syncope. Denies palpitations Troponins negative 2, third set pending. EKG reporting sinus bradycardia, nonspecific T-wave abnormality, Echo reporting LV function 50%. chest x-ray reporting cardiomegaly, without acute pulmonary process, gallbladder ultrasound reporting hepatic steatosis with suggested focal fatty sparing next to gallbladder fossa. Afebrile, unremarkable hematology and chemistry panels. INR 1.2. Lipase, amylase pending. Review of Systems ROS Statement: Those systems with pertinent positive or pertinent negative responses have been documented in the HPI. ROS Other: All systems not noted in ROS Statement are negative. Past Medical History Past Medical History: Atrial Fibrillation, Deep Vein Thrombosis (DVT), Hype rtension, Osteoarthritis (OA), Pulmonary Embolus (PE) Additional Past Medical History / Comment(s): DVT, PE 08/2018, After Total Knee surg 07/2018. Kidney stones, RLS, neuropathy feet. SEE DR. DORANTES'S H & P, SEE DR. NEGRETE'S H &P History of Any Multi-Drug Resistant Organisms: None Reported Past Surgical History: Appendectomy, Joint Replacement, Orthopedic Surgery Additional Past Surgical History / Comment(s): Lt Total Knee. Scopes on hali knees, ankles. EGD, Colonoscopy. LT ROTATOR CUFF REPAIR Past Anesthesia/Blood Transfusion Reactions: No Reported Reaction Past Psychological History: No Psychological Hx Reported Smoking Status: Former smoker Past Alcohol Use History: None Reported Past Drug Use History: None Reported - Past Family History Mother Family Medical History: Cancer Additional Family Medical History / Comment(s): Colon, stomach CA. Medications and Allergies Home Medications Medication Instructions Recorded Confirmed Type Gabapentin [Neurontin] 600 mg PO QID 01/21/19 05/05/22 History rOPINIRole HCL [Requip] 0.25 mg PO HS 01/21/19 05/05/22 History Rivaroxaban [Xarelto] 20 mg PO HS 07/01/21 05/05/22 History Cholecalciferol [Vitamin D3 (25 25 mcg PO DAILY 05/05/22 05/05/22 History Mcg = 1000 Iu)] Metoprolol Succinate (ER) [Toprol 25 mg PO HS 05/05/22 05/05/22 History XL] Vitamin B Complex 1 cap PO DAILY 05/05/22 05/05/22 History Allergies Allergy/AdvReac Type Severity Reaction Status Date / Time levofloxacin [From Levaquin] Allergy Rash/Hives Verified 05/05/22 08:50 all over body metronidazole [From Flagyl] Allergy Rash/Hives Verified 05/05/22 08:50 all over body Physical Exam Vitals: Vital Signs Temp Pulse Pulse Resp BP BP Pulse Ox 05/05/22 10:30 97.7 F 57 L 18 97/64 97 05/05/22 07:01 60 18 117/75 99 05/05/22 05:46 96.8 F L 56 L 16 114/83 100 Intake and Output 05/04/22 05/05/22 05/05/22 22:59 06:59 14:59 Other: Weight 125.645 kg 125.645 kg PHYSICAL EXAM: VITAL SIGNS: [As above] GENERAL: Sitting up in bed, no acute distress HEENT: Conjunctivae normal. eyes normal. NECK: Supple, No JVD. No thyroid enlargement. No LNs CARDIOVASCULAR: S1, S2 regular. No murmur RESPIRATION: Breath sounds diminished in the bases. No rhonchi or crackles. No bronchial breathing. ABDOMEN: Soft, nontender . No guarding. no masses palpable. No ascites, No hepatosplenomegaly.Bowel sounds heard. LEGS: No edema. no swelling PSYCHIATRY: Alert and oriented X3, mood and affect normal. NERVOUS SYSTEM: Cranial N 2-12 grossly normal.No focal deficits. Strength and sensation grossly intact.. Skin: Warm and dry, no rash Results CBC & Chem 7: 05/05/22 05:51 05/05/22 05:51 Labs: Abnormal Lab Results - Last 24 Hours (Table) 05/05/22 05/05/22 Range/Units 05:51 05:51 PT 12.6 H (9.0-12.0) sec INR 1.2 H (<1.2) Chloride 108 H (98-107) mmol/L Glucose 116 H (74-99) mg/dL Thrombosis Risk Factor Assmnt - Choose All That Apply Any of the Below Risk Factors Present?: Yes Each Factor Represents 1 point: Age 41-60 years, Obesity (BMI >25) Other Risk Factors: Yes Each Risk Factor Represents 3 Points: History of DVT/PE Thrombosis Risk Factor Assessment Total Risk Factor Score: 5 Thrombosis Risk Factor Assessment Level: High Risk Assessment and Plan Assessment: Chest pain, resolved, right lateral upper abdominal quadrant pain ,troponin is negative 3, cardiology following Hepatic steatosis Chronic Paroximal atrial fibrillation, history of atrial fibrillation History of loop recorder insertion, [employer] (as per cardiology) Obesity, BMI 37.6 Plan: Continue on current medication regime ,monitoring and symptomatic treatment. Surgery consulted regarding abdominal pain. Cleared by cardiology for discharge. Discharge planning in progress. The impression and plan of care has been dictated as directed. : I performed a history and examination of this patient, discussed the same with the dictator. I agree with the dictator's note ,documented as a scribe. Any additional findings or plans will be noted.
[2022-05-05 20:14] LABS: Amylase 67 U/L (23-121); Lipase 51 U/L (14-60)
[2022-05-05] MEDS: METOPROLOL SUCCINATE (ER) 25 MG TAB.ER.24H PO SCH (20:33)
[2022-05-05] MEDS ORDERED: METOPROLOL SUCCINATE (ER) 50 MG TAB.ER.24H PO SCH (21:00)
[2022-05-05] MEDS ORDERED: RIVAROXABAN 20 MG TAB PO SCH (21:00)
[2022-05-06] MEDS ORDERED: ASPIRIN 325 MG TAB PO SCH (09:00)
--- NOTE | 2022-05-06 09:51 | NM ---
EXAMINATION TYPE: NM hepatobiliary w CCK DATE OF EXAM: 05/06/2022 COMPARISON: NONE HISTORY: RUQ abdominal pain TECHNIQUE: After the intravenous administration of 5.2 mCi Tc 99m Mebrofenin hepatobiliary scintigrap hy is performed. Immediate images post injection. FINDINGS: There is satisfactory initial accumulation of tracer by the liver. The gallbladder is visualized wit hin 14 minutes. The small bowel activity is noted within 32 minutes. At one hour CCK was administer ed, patient was injected with 2.5 mcg of Kinevac, and gallbladder ejection fraction is calculated at 14%. IMPRESSION: Diminished gallbladder ejection fraction which may reflect chronic cholecystitis and/or b iliary dyskinesia.
[2022-05-06] MEDS: PANTOPRAZOLE 40 MG/10 ML VIAL IVP SCH (09:53)
[2022-05-06] MEDS: GABAPENTIN 300 MG CAP PO SCH ×4 (09:53→21:17)
[2022-05-06 11:09] LABS: Chol/HDL Ratio 4.59 Ratio; LDL Cholesterol,Calculated 103.8 mg/dL (0.0-131.0)
--- NOTE | 2022-05-06 11:27 | P.PN ---
Subjective Progress Note Date: 05/06/22 H&P Date: 05/05/22 Chief Complaint: Chest pain and right lateral upper quadrant abdominal pain This a 51-year-old female with past medical history of atrial fibrillation, ablation, DVT, hypertension, osteoarthritis, PE, renal calculi, neuropathy, former nicotine dependence, former alcohol use presented to the ER with complaints of chest pain and lateral right upper quadrant abdominal pain. Reports the midsternal chest pain woke him up at around 4:30 this morning, radiating to posterior neck, mild shortness of breath , diaphoresis accompanied by fluctuating right lateral upper quadrant abdominal pain and nausea. Denies emesis. Denies syncope. Denies palpitations Troponins negative 2, third set pending. EKG reporting sinus bradycardia, nonspecific T-wave abnormality, Echo reporting LV function 50%. chest x-ray reporting cardiomegaly, without acute pulmonary process, gallbladder ultrasound reporting hepatic steatosis with suggested focal fatty sparing next to gallbladder fossa. Afebrile, unremarkable hematology and chemistry panels. INR 1.2. Lipase, amylase pending. 05/06/2022 cleared by cardiology for discharge yesterday. HIDA scan completed reporting diminished gallbladder ejection fraction calculated at 14%, possible chronic cholecystitis and or biliary dyskinesia. Evaluated by surgery, HIDA scan reviewed and patient is scheduled for cholecystectomy today. NPO. Denies chest pain, palpitations or shortness of breath. Right lateral upper quadrant abdominal pain persists. Afebrile, maintaining O2 sats in the high 90s on room air. Objective - Vital Signs Vital signs: Vital Signs Temp 97.7 F 05/06/22 06:55 Pulse 57 L 05/06/22 06:55 Resp 18 05/06/22 09:45 BP 104/67 05/06/22 06:55 Pulse Ox 98 05/06/22 09:01 FiO2 Intake & Output 05/05/22 05/06/22 05/06/22 18:59 06:59 18:59 Weight 125.645 kg Other: # Voids 1 1 - Exam PHYSICAL EXAM: VITAL SIGNS: [As above] GENERAL: Alert and oriented 3, Sitting up in bed, no acute distress HEENT: Conjunctivae normal. eyes normal. NECK: Supple, No JVD. CARDIOVASCULAR: S1, S2 regular. No murmur RESPIRATION: Breath sounds diminished in the bases. No rhonchi or crackles. No bronchial breathing. ABDOMEN: Soft, nontender . No guarding. Bowel sounds heard. LEGS: No edema. no swelling NERVOUS SYSTEM: Cranial N 2-12 grossly normal.No focal deficits. Strength and sensation grossly intact. Skin: Warm and dry, no rash - Labs CBC & Chem 7: 05/05/22 05:51 05/05/22 05:51 Labs: Abnormal Lab Results - Last 24 Hours (Table) 05/06/22 Range/Units 07:07 HDL Cholesterol 36.80 L (40.00-60.00) mg/dL Assessment and Plan Assessment: Chest pain, resolved, right lateral upper abdominal quadrant pain ,troponin is negative 3 Diminished gallbladder ejection fraction 14% reported per HIDA scan, possible chronic cholecystitis and for biliary dyskinesia, cholecystectomy pending Hepatic steatosis Chronic Paroximal atrial fibrillation, history of atrial fibrillation History of loop recorder insertion, [employer] (as per cardiology) Obesity, BMI 37.6 Plan: Continue on current medication regime ,monitoring and symptomatic treatment. Cholecystectomy pending. Discharge planning in progress tentatively for tomorrow. The impression and plan of care has been dictated as directed. : I performed a history and examination of this patient, discussed the same with the dictator. I agree with the dictator's note ,documented as a scribe. Any additional findings or plans will be noted.
--- NOTE | 2022-05-06 12:58 | P.PN ---
Subjective Progress Note Date: 05/06/22 CHIEF COMPLAINT: Abdominal pain HISTORY OF PRESENT ILLNESS: Patient continues to have right upper quadrant abdominal pain. HIDA scan had shown gallbladder ejection fraction of 14%. Diminished gallbladder ejection fraction which may reflect chronic cholecystitis and/or biliary dyskinesia. Apparently during the HIDA scan patient's heart rate did go down into the 40s. Medicine service has been consulted cardiology. EKG has been ordered. Patient is on a beta ethan. PHYSICAL EXAM: VITAL SIGNS: Reviewed. GENERAL: Well-developed in no acute distress. HEENT: No sclera icterus. Extraocular movements grossly intact. Moist buccal mucosa. Head is atraumatic, normocephalic. ABDOMEN: Soft. Nondistended. Tender right upper quadrant with palpation NEUROLOGIC: Alert and oriented. Cranial nerves II through XII grossly intact. ASSESSMENT: 1. Right upper quadrant abdominal pain 2. Biliary dyskinesia but HIDA scan ejection fraction of 14% PLAN: -Patient to be reevaluated by cardiology due to bradycardia -Patient scheduled for laparoscopic cholecystectomy today with Dr. Doran -Chitra Squires on hold for surgery Physician Criminology Professor note has been reviewed by physician. Signing provider agrees with the documented findings, assessment, and plan of care. Objective - Vital Signs Vital signs: Vital Signs Temp 97.7 F 05/06/22 06:55 Pulse 57 L 05/06/22 06:55 Resp 18 05/06/22 09:45 BP 104/67 05/06/22 06:55 Pulse Ox 98 05/06/22 09:01 FiO2 Intake & Output 05/05/22 05/06/22 05/06/22 18:59 06:59 18:59 Weight 125.645 kg Other: # Voids 1 1 - Labs CBC & Chem 7: 05/05/22 05:51 05/05/22 05:51 Labs: Abnormal Lab Results - Last 24 Hours (Table) 05/06/22 Range/Units 07:07 HDL Cholesterol 36.80 L (40.00-60.00) mg/dL
[2022-05-06] MEDS ORDERED: ONDANSETRON 4 MG/2 ML VIAL ONE (14:59)
[2022-05-06] MEDS ORDERED: LACTATED RINGERS 1,000 ML IV ONE (15:06)
[2022-05-06] MEDS ORDERED: ONDANSETRON 4 MG/2 ML VIAL IVP ONE ×2 (15:06→17:23)
[2022-05-06] MEDS ORDERED: DEXAMETHASONE SOD PHOSPHATE 4 MG/ML 1 ML VIAL IVP ONE (15:06)
[2022-05-06] MEDS ORDERED: BUPIVACAIN-EPI 0.25%-1:200,000 30 ML VIAL SQ ONE ×2 (15:24→16:01)
[2022-05-06] MEDS ORDERED: ceFAZolin 3 GM in SODIUM CHLORIDE 0.9% 100 ML IVPB ONE (15:31)
[2022-05-06] MEDS ORDERED: NEOSTIGMINE 1 MG/ML 10 ML VIAL ONE (15:35)
[2022-05-06] MEDS ORDERED: GLYCOPYRROLATE 0.2 MG/ML 2 ML VIAL ONE (15:35)
[2022-05-06] MEDS ORDERED: fentaNYL (PF) 50 MCG/ML 2 ML AMP ONE (15:35)
[2022-05-06] MEDS ORDERED: ROCURONIUM 10 MG/ML (5 ML VIAL) IV ONE (15:35)
[2022-05-06] MEDS ORDERED: SODIUM CHLORIDE 0.9% 100 ML BAG ONE (15:35)
[2022-05-06] MEDS ORDERED: PROPOFOL 10 MG/ML 20 ML VIAL IV ONE (15:35)
[2022-05-06] MEDS ORDERED: PHENYLEPHRINE-0.9% NACL SYG 1,000 MCG/10 ML SYRINGE ONE (15:35)
[2022-05-06] MEDS ORDERED: ceFAZolin 1,000 MG VIAL ONE (15:35)
[2022-05-06] MEDS ORDERED: MIDAZOLAM 2 MG/2 ML VIAL ONE (15:35)
[2022-05-06] MEDS ORDERED: HYDROmorphone (PF) 1 MG/ML ONE (15:35)
[2022-05-06] MEDS ORDERED: SUCCINYLCHOLINE CHLORIDE 200 MG/10 ML VIAL IV ONE (15:35)
[2022-05-06] MEDS ORDERED: HEPARIN SODIUM,PORCINE 5,000 UNIT/ML 1 ML VIAL ONE (15:35)
[2022-05-06] MEDS ORDERED: SODIUM CHLORIDE 0.9% 50 ML with ceFAZolin 3,000 MG IV ONE ×2 (15:40)
[2022-05-06] MEDS ORDERED: ONDANSETRON 4 MG/2 ML VIAL IVP PRN (16:30)
[2022-05-06] MEDS ORDERED: HYDROmorphone 1 MG/ML 1 ML SYRINGE IVP PRN (16:30)
--- NOTE | 2022-05-06 16:31 | P.OP ---
Date of Procedure: 05/06/22 Preoperative Diagnosis: Cholecystitis Postoperative Diagnosis: Cholecystitis Intrahepatic gallbladder Procedure(s) Performed: laparoscopic cholecystectomy Anesthesia: RAMONA Surgeon: Donnie Doran Estimated Blood Loss (ml): 5 Pathology: other (Gallbladder) Condition: stable Disposition: PACU Description of Procedure: The patient was placed on the operating table. The patient received a general endotracheal tube anesthesia. The patients abdomen was prepped and draped in the usual sterile fashion. Through an infraumbilical stab incision, the fascia of the anterior abdominal wall was grasped with a pair of Kochers and then the Veress needle was placed in the peritoneal cavity. Position of the Veress needle was confirmed with positive drop test. The abdomen was then insufflated. After adequate insufflation, the 10 mm trocar was placed in the peritoneal cavity. Following this the laparoscope was placed in the peritoneal cavity. The patient was placed in the head-up, right side up position and then a 5 mm trocar was placed in the right lateral and right subcostal position under direct visualization. A 8 mm trocar was placed in the epigastric position. The gallbladder was grasped in the fundus and infundibulum. Traction on the gallbladder was placed in the lateral and the cephalad positions. The triangle of Calot was visualized.. The cystic duct was bluntly dissected until the union of the cystic duct and common bile duct was seen. A critical view of safety was achieved. The cystic duct was then divided and sealed with the Harmonic scissors. A PDS Endoloop was then placed throughout the cystic duct stump. The cystic artery divided and sealed with the Harmonic scissors. The gallbladder was then removed from the liver bed using Harmonic scissors. The gallbladder was then extracted through the epigastric port site. Operative field was checked for any bleeding spots and Harmonic scissors was used to coagulate the liver bed. The abdomen was irrigated. The trocars were removed. The skin was closed using interrupted 3-0 Vicryl suture. Dermabond dressing were applied. The patient tolerated the procedure well.
[2022-05-06] MEDS: METOPROLOL SUCCINATE (ER) 25 MG TAB.ER.24H PO SCH (21:05)
[2022-05-07] MEDS: HYDROcodone/APAP 7.5-325MG 1 EACH TAB PO PRN ×3 (01:51→16:20)
[2022-05-07] MEDS: PANTOPRAZOLE 40 MG TABLET PO SCH (05:59)
[2022-05-07] MEDS ORDERED: ENOXAPARIN 40 MG/0.4 ML SYRINGE SQ SCH (09:00)
--- NOTE | 2022-05-07 09:47 | P.PN ---
Progress Note - Text Progress Note Date: 05/07/22 The patient's complaints of incisional and right shoulder pain. He does not feel well. Home. On exam vital signs are stable. Abdomen soft. Status post laparoscopic cholestatic. Patient will be discharged home in a.m.
[2022-05-07] MEDS: GABAPENTIN 300 MG CAP PO SCH ×4 (10:37→20:26)
--- NOTE | 2022-05-07 11:56 | P.PN ---
Subjective Progress Note Date: 05/07/22 This a 51-year-old female with past medical history of atrial fibrillation, ablation, DVT, hypertension, osteoarthritis, PE, renal calculi, neuropathy, former nicotine dependence, former alcohol use presented to the ER with complaints of chest pain and lateral right upper quadrant abdominal pain. Reports the midsternal chest pain woke him up at around 4:30 this morning, radiating to posterior neck, mild shortness of breath , diaphoresis accompanied by fluctuating right lateral upper quadrant abdominal pain and nausea. Denies emesis. Denies syncope. Denies palpitations Troponins negative 2, third set pending. EKG reporting sinus bradycardia, nonspecific T-wave abnormality, Echo reporting LV function 50%. chest x-ray reporting cardiomegaly, without acute pulmonary process, gallbladder ultrasound reporting hepatic steatosis with suggested focal fatty sparing next to gallbladder fossa. Afebrile, unremarkable hematology and chemistry panels. INR 1.2. Lipase, amylase pending. 05/06/2022 cleared by cardiology for discharge yesterday. HIDA scan completed reporting diminished gallbladder ejection fraction calculated at 14%, possible chronic cholecystitis and or biliary dyskinesia. Evaluated by surgery, HIDA scan reviewed and patient is scheduled for cholecystectomy today. NPO. Denies chest pain, palpitations or shortness of breath. Right lateral upper quadrant abdominal pain persists. Afebrile, maintaining O2 sats in the high 90s on room air. Patient just disclosed that he was symptomatic with his drop in heart rate during his HIDA scan. RN reporting heart rate decreased into the 40s for approximately 1 minute, patient stated he felt"more relaxed", denied lightheadedness. Heart rate currently in the high 50s. Denies chest pain, palpitations or shortness of breath. Stat 12-lead EKG ordered, cardiology reconsulted stat for further cardiac clearance, in a patient with significant cardiac history. Surgery notified. 05/07/2022: Patient is status post arthroscopic cholecystectomy postop day 1. It was felt after careful his right upper quadrant pain was due to gallbladder disease. Cardiology cleared him after the episode of bradycardia yesterday before surgery. Today he has complaints of chest pain. He denies any chest pain shortness of breath nausea vomiting. No stool recently, urinating normally. I will sign she was afebrile, heart rate controlled respiratory normal. Labs showed cholesterol of 169, glyceride of 142 and LDL to 3.8. Operative note and progress note by surgery reviewed today. Cardiology signed off the case. Patient remains on telemetry. He has a parameters Patient has alprazolam for his ongoing anxiety, gabapentin for his neuropathic pain and hydrocodone or hydromorphone for postoperative pain. Objective - Vital Signs Vital signs: Vital Signs Temp 98 F 05/07/22 07:00 Pulse 73 05/07/22 07:00 Resp 16 05/07/22 07:00 BP 111/74 05/07/22 07:00 Pulse Ox 94 L 05/07/22 08:00 FiO2 Intake & Output 05/06/22 05/07/22 05/07/22 18:59 06:59 18:59 Intake Total 900 118 Output Total 5 Balance 895 118 Intake: IV 900 Oral 118 Output: Estimated Blood Loss 5 Other: Voiding Method Toilet # Voids 3 - Exam GENERAL: Alert and oriented 3, Sitting up in bed, no acute distress HEENT: Conjunctivae normal. eyes normal. NECK: Supple, No JVD. CARDIOVASCULAR: S1, S2 regular. No murmur RESPIRATION: Breath sounds slightly clear to auscultation No rhonchi or crackles. No bronchial breathing. ABDOMEN: Soft, patient deferred due to his surgery, incision sites are clean dry and intact. . Bowel sounds heard. LEGS: No edema. no swelling NERVOUS SYSTEM: Cranial N 2-12 grossly normal.No focal deficits. Strength and sensation grossly intact. Skin: Warm and dry, no rash - Labs CBC & Chem 7: 05/05/22 05:51 05/05/22 05:51 Assessment and Plan (1) Dysfunctional gallbladder Current Visit: Yes Status: Acute Code(s): K82.8 - OTHER SPECIFIED DISEASES OF GALLBLADDER SNOMED Code(s): 090135334 (2) S/P cholecystectomy Current Visit: Yes Status: Acute Code(s): Z90.49 - ACQUIRED ABSENCE OF OTHER SPECIFIED PARTS OF DIGESTIVE TRACT SNOMED Code(s): 086659483 (3) Paroxysmal atrial fibrillation Current Visit: Yes Status: Acute Code(s): I48.0 - PAROXYSMAL ATRIAL FIBRILLATION SNOMED Code(s): 555478585 (4) Hepatic steatosis Current Visit: Yes Status: Acute Code(s): K76.0 - FATTY (CHANGE OF) LIVER, NOT ELSEWHERE CLASSIFIED SNOMED Code(s): 999311679 (5) H/O deep venous thrombosis Current Visit: Yes Status: Acute Code(s): Z86.718 - PERSONAL HISTORY OF OTHER VENOUS THROMBOSIS AND EMBOLISM SNOMED Code(s): 214340871 (6) salvage determiner current use of anticoagulant therapy Current Visit: Yes Status: Acute Code(s): Z79.01 - [facility] (CURRENT) USE OF ANTICOAGULANTS SNOMED Code(s): 986694871 (7) Essential (primary) hypertension Current Visit: Yes Status: Acute Code(s): I10 - ESSENTIAL (PRIMARY) HYPERTENSION SNOMED Code(s): 79033284 (8) History of pulmonary embolus (PE) Current Visit: Yes Status: Acute Code(s): Z86.711 - PERSONAL HISTORY OF PU LMONARY EMBOLISM SNOMED Code(s): 637510582 (9) RLS (restless legs syndrome) Current Visit: Yes Status: Acute Code(s): G25.81 - RESTLESS LEGS SYNDROME SNOMED Code(s): 90286731 (10) Chest pain Current Visit: Yes Status: Acute Code(s): R07.9 - CHEST PAIN, UNSPECIFIED SNOMED Code(s): 26777010 Plan: We'll discontinue the other pain medication she's not using. He'll continue his home meds. He is encouraged for ambulation. We'll give him a incentive spirometer to be used 10 deep breaths every hour while awake. He may be discharged home this afternoon if he is feeling more able. Will be reevaluated in the next 24 hours as needed.
[2022-05-07] MEDS ORDERED: RIVAROXABAN 20 MG TAB PO SCH (17:30)
[2022-05-07] MEDS: METOPROLOL SUCCINATE (ER) 25 MG TAB.ER.24H PO SCH (20:26)
[2022-05-08] MEDS: HYDROcodone/APAP 7.5-325MG 1 EACH TAB PO PRN ×2 (00:46→09:27)
[2022-05-08] MEDS: PANTOPRAZOLE 40 MG TABLET PO SCH (06:15)
[2022-05-08 08:00] VITALS: BP 100/66; PULSE 67; RESP 16; TEMP 98.5
[2022-05-08 09:19] LABS: Basophils # (A) 0.04 X 10*3/uL (0.00-0.10); Basophils % (A) 0.4 %; Eosinophils # (A) 0.03 X 10*3/uL (0.04-0.35); Eosinophils % (A) 0.3 %; HGB 14.1 g/dL (13.0-17.0); Immature Grans, Automated 0.7 %; Lymphocytes # (A) 2.61 X 10*3/uL (0.90-5.00); Lymphocytes % (A) 23.2 %; MCH 31.5 pg (27.0-32.0); MCHC 33.6 g/dL (32.0-37.0); MCV 93.8 fL (80.0-97.0); Mean Platelet Volume 10.8 fL (9.5-12.2); Monocytes # (A) 0.98 X 10*3/uL (0.20-1.00); Monocytes % (A) 8.7 %; NRBC Per 100 WBC 0 /100 WBCS (0.0-0.0); Neutrophils # (A) 7.53 X 10*3/uL (1.80-7.70); Neutrophils % (A) 66.7 %; Platelet Count 209 X 10*3/uL (140-440); RBC 4.48 X 10*6/uL (4.40-5.60); RDW 12.9 % (11.5-14.5); WBC 11.27 X 10*3/uL (4.50-10.00)
[2022-05-08 09:21] LABS: African American GFR (CKD) 119.4 (60.0-200.0); Albumin 3.9 g/dL (3.8-4.9); Albumin/Globulin Ratio 1.56 (1.60-3.17); Anion Gap 11.6 mmol/L (10.00-18.00); BUN/Creat Ratio 11.85 Ratio (12.00-20.00); Blood Urea Nitrogen 9.4 mg/dL (9.0-27.0); Calcium 8.7 mg/dL (8.7-10.3); Carbon Dioxide 25.8 mmol/L (20.0-27.5); Globulin 2.5 g/dL (1.6-3.3); Total Bilirubin 1.4 mg/dL (0.30-1.20); Total Protein 6.3 g/dL (6.2-8.2)
[2022-05-08] MEDS: GABAPENTIN 300 MG CAP PO SCH (09:27)
--- NOTE | 2022-05-08 11:19 | P.PN ---
Progress Note - Text Progress Note Date: 05/08/22 Patient feels better today. He states his pain is improved. On exam vital signs are stable. Abdomen soft. Patient is stable for discharge home. He'll follow-up in one week.
--- NOTE | 2022-05-08 11:40 | P.DS ---
Providers Date of admission: 05/05/22 08:31 Expected date of discharge: 05/08/22 Attending physician: Earl Helms Consults: 05/05/22 12:38 Consult Physician Routine Consulting Provider: Donnie Doran Consult Reason/Comments: RUQ lateral abdominal pain Do you want consulting provider notified?: Already Contacted Primary care physician: Earl Helms - Discharge Diagnosis(es) (1) Dysfunctional gallbladder Current Visit: Yes Status: Acute (2) S/P cholecystectomy Current Visit: Yes Status: Acute (3) Paroxysmal atrial fibrillation Current Visit: Yes Status: Acute (4) Hepatic steatosis Current Visit: Yes Status: Acute (5) H/O deep venous thrombosis Current Visit: Yes Status: Acute (6) senior living current use of anticoagulant therapy Current Visit: Yes Status: Acute (7) Essential (primary) hypertension Current Visit: Yes Status: Acute (8) History of pulmonary embolus (PE) Current Visit: Yes Status: Acute (9) RLS (restless legs syndrome) Current Visit: Yes Status: Acute (10) Chest pain Current Visit: Yes Status: Acute Hospital Course: This a 51-year-old female with past medical history of atrial fibrillation, ablation, DVT, hypertension, osteoarthritis, PE, renal calculi, neuropathy, former nicotine dependence, former alcohol use presented to the ER with comp laints of chest pain and lateral right upper quadrant abdominal pain. Reports the midsternal chest pain woke him up at around 4:30 this morning, radiating to posterior neck, mild shortness of breath , diaphoresis accompanied by fluctuating right lateral upper quadrant abdominal pain and nausea. Denies emesis. Denies syncope. Denies palpitations Troponins negative 2, third set pending. EKG reporting sinus bradycardia, nonspecific T-wave abnormality, Echo reporting LV function 50%. chest x-ray reporting cardiomegaly, without acute pulmonary process, gallbladder ultrasound reporting hepatic steatosis with suggested focal fatty sparing next to gallbladder fossa. Afebrile, unremarkable hematology and chemistry panels. INR 1.2. Lipase, amylase pending. 05/06/2022 cleared by cardiology for discharge yesterday. HIDA scan completed reporting diminished gallbladder ejection fraction calculated at 14%, possible chronic cholecystitis and or biliary dyskinesia. Evaluated by surgery, HIDA scan reviewed and patient is scheduled for cholecystectomy today. NPO. Denies chest pain, palpitations or shortness of breath. Right lateral upper quadrant abdominal pain persists. Afebrile, maintaining O2 sats in the high 90s on room air. Patient just disclosed that he was symptomatic with his drop in heart rate during his HIDA scan. RN reporting heart rate decreased into the 40s for appro ximately 1 minute, patient stated he felt"more relaxed", denied lightheadedness. Heart rate currently in the high 50s. Denies chest pain, palpitations or shortness of breath. Stat 12-lead EKG ordered, cardiology reconsulted stat for further cardiac clearance, in a patient with significant cardiac history. Surgery notified. 05/07/2022: Patient is status post arthroscopic cholecystectomy postop day 1. It was felt after careful his right upper quadrant pain was due to gallbladder disease. Cardiology cleared him after the episode of bradycardia yesterday before surgery. Today he has complaints of chest pain. He denies any chest pain shortness of breath nausea vomiting. No stool recently, urinating normally. I will sign she was afebrile, heart rate controlled respiratory normal. Labs showed cholesterol of 169, glyceride of 142 and LDL to 3.8. Operative note and progress note by surgery reviewed today. Cardiology signed off the case. Patient remains on telemetry. He has a parameters Patient has alprazolam for his ongoing anxiety, gabapentin for his neuropathic pain and hydrocodone or hydromorphone for postoperative pain. 05/08/2022: Patient is improved. He's tolerating diet and urinating. He reports no recent flatus though. He will be going home this afternoon. Surgery written him a prescription for oxycodone for pain. Patient Condition at Discharge: Fair Plan - Discharge Summary New Discharge Prescriptions: New oxyCODONE HCL [OxyIR] 5 mg PO Q6H PRN 3 Days #10 tab PRN Reason: Pain Nitroglycerin Sl Tabs [Nitrostat] 0.4 mg SUBLINGUAL Q5M PRN tab PRN Reason: Chest Pain Continue rOPINIRole HCL [Requip] 0.25 mg PO HS Gabapentin [Neurontin] 600 mg PO QID Metoprolol Succinate (ER) [Toprol XL] 25 mg PO HS Rivaroxaban [Xarelto] 20 mg PO HS Cholecalciferol [Vitamin D3 (25 Mcg = 1000 Iu)] 25 mcg PO DAILY Vitamin B Complex 1 cap PO DAILY Discharge Medication List Gabapentin [Neurontin] 600 mg PO QID 01/21/19 [History] rOPINIRole HCL [Requip] 0.25 mg PO HS 01/21/19 [History] Rivaroxaban [Xarelto] 20 mg PO HS 07/01/21 [History] Cholecalciferol [Vitamin D3 (25 Mcg = 1000 Iu)] 25 mcg PO DAILY 05/05/22 [History] Metoprolol Succinate (ER) [Toprol XL] 25 mg PO HS 05/05/22 [History] Vitamin B Complex 1 cap PO DAILY 05/05/22 [History] Nitroglycerin Sl Tabs [Nitrostat] 0.4 mg SUBLINGUAL Q5M PRN tab 05/08/22 [Rx] oxyCODONE HCL [OxyIR] 5 mg PO Q6H PRN 3 Days #10 tab 05/08/22 [Rx] Follow up Appointment(s)/Referral(s): Donnie Doran MD [STAFF PHYSICIAN] - 1 Week Earl Helms MD [Primary Care Provider] - 1 Week Discharge Disposition: HOME SELF-CARE
== END 2022-05-08 12:24 | disposition home or self-care (01) ==
LOC: EC 05:36 → 6NMEDSUR 08:31
PROVIDERS: ADMIT Family Medicine; ATTEND Family Medicine
DX: K81.1 Chronic cholecystitis (principal); R07.89 Other chest pain; K82.8 Other specified diseases of gallbladder; Q44.1 Other congenital malformations of gallbladder; I11.9 Hypertensive heart disease without heart failure; I48.0 Paroxysmal atrial fibrillation; I42.8 Other cardiomyopathies; I47.1 Supraventricular tachycardia; M19.90 Unspecified osteoarthritis, unspecified site; G25.81 Restless legs syndrome; G62.9 Polyneuropathy, unspecified; K76.0 Fatty (change of) liver, not elsewhere classified; R05.3 Chronic cough; M25.511 Pain in right shoulder; R00.1 Bradycardia, unspecified; F41.9 Anxiety disorder, unspecified; E66.9 Obesity, unspecified; Z68.37 Body mass index [BMI] 37.0-37.9, adult; Z79.01 Long term (current) use of anticoagulants; Z79.899 Other long term (current) drug therapy; Z88.1 Allergy status to other antibiotic agents; Z86.711 Personal history of pulmonary embolism; Z86.718 Personal history of other venous thrombosis and embolism; Z87.442 Personal history of urinary calculi; Z96.652 Presence of left artificial knee joint; Z90.49 Acquired absence of other specified parts of digestive tract; Z98.890 Other specified postprocedural states; Z87.891 Personal history of nicotine dependence; Z95.818 Presence of other cardiac implants and grafts; Z83.3 Family history of diabetes mellitus; Z80.0 Family history of malignant neoplasm of digestive organs; Z80.9 Family history of malignant neoplasm, unspecified
CPT/HCPCS: 47562; 96376; 96375 ×2; 96374; 99285; 36415; 94760 ×2; 93005; 93306; 80061; 80053 ×2; 82150; 83690; 83735; 84484; 85025 ×2; 85610; 85730; 71046; 76705; 78227; G0378 ×4; A9537; J2250; J0330; J1644; J1100; J2710; J2405 ×2; J0690; J2805; J1650; J3010; J1170 ×2; J2370; J2704; C9113 ×2; Q9950; 88304

== ENCOUNTER 2022-06-30 11:17 | Day surgery (SDC) | payer BC ==
[2022-06-28 18:13] VITALS: BMI 35.2
[~2022-06-30 11:17] MED LIST changes: -ALPRAZolam 0.25 MG TAB PO PRN; -ALPRAZolam 0.5 MG TAB PO PRN; -ASPIRIN 325 MG TAB PO STA; -ATORVASTATIN 80 MG TAB PO STA; +LACTATED RINGERS 1,000 ML IV SCH; +LIDOCAINE 1% (10MG/ML) FOR IV START INTRADERMA PRN; -NITROGLYCERIN SL TABS 0.4 MG TAB SUBLINGUAL PRN; -SODIUM CHLORIDE 0.9% 1,000 ML IV SCH; -SODIUM CHLORIDE 0.9% 1,000 ML in EMPTY BAG 1 BAG IV ONE
[2022-06-30 11:52] VITALS: TEMP 97.4
[2022-06-30] MEDS ORDERED: LIDOCAINE 2% INJ 20 MG/ML (2 ML VIAL) ONE (12:00)
[2022-06-30] MEDS ORDERED: PROPOFOL 10 MG/ML 20 ML VIAL IV ONE (12:00)
[2022-06-30 12:15] VITALS: RESP 17
--- NOTE | 2022-06-30 12:15 | P.OP ---
Date of Procedure: 06/30/22 Preoperative Diagnosis: Gastritis Postoperative Diagnosis: GERD Sliding hiatal hernia Esophagitis Antral gastritis Procedure(s) Performed: EGD Anesthesia: MAC Surgeon: Donnie Doran Pathology: other (Antrum, esophagus) Condition: stable Disposition: PACU Description of Procedure: The patient's placed on the endoscopy table in the lateral position. He received IV sedation. The gastroscope patient oropharynx passed in the esophagus into the stomach. Scope was then placed through the pylorus. The first and second portion of the duodenum appeared normal. Scope was then brought back the antrum was mildly inflamed. A biopsies performed. The scope was then retroflexed and the remainder of the stomach appeared normal. There was a sliding hiatal hernia. The junction was at 47 is. The distal esophagus appeared mildly inflamed a biopsies performed. The proximal esophagus appeared normal. The withdrawn for patient.
[2022-06-30 12:32] VITALS: BP 122/80; PULSE 60
== END 2022-06-30 12:45 | disposition home or self-care (01) ==
LOC: ORWHC2ENDO 11:17
PROVIDERS: ATTEND Surgery
DX: K21.00 Gastro-esophageal reflux disease with esophagitis, without bleeding (principal); K29.50 Unspecified chronic gastritis without bleeding; K44.9 Diaphragmatic hernia without obstruction or gangrene; I48.91 Unspecified atrial fibrillation; Z87.891 Personal history of nicotine dependence; G25.81 Restless legs syndrome; Z79.899 Other long term (current) drug therapy
CPT/HCPCS: 88305; 43239; J2704; J2001

== ENCOUNTER → 2024-08-18 | Outpatient (CLI) | payer BC ==
--- NOTE | 2024-08-19 07:20 | MR ---
EXAMINATION TYPE: MR lumbar spine wo con DATE OF EXAM: 08/18/2024 9:33 PM COMPARISON:08/06/2024. CLINICAL INDICATION: Male, 53 years old with history of M54.50 M47.816; PHH, low back pain for about 3-4 weeks, no known injury TECHNIQUE: Multi planar, multi sequence imaging was performed utilizing: T1-weighted, T2-weighted, a nd turbo inversion recovery imaging of the lumbar spine. IV Contrast: mL (None, if empty) FINDINGS: Alignment: The lumbar vertebral bodies have preserved heights and alignment. Cord: The conus medullaris and the distal spinal cord appear unremarkable with regards to their signa l intensity and morphology. Bones/Discs: Mild degeneration changes throughout the spine with osteophyte formation and facet joint arthropathy. Intervertebral disc signal is maintained. No abnormal inversion recovery signal to sugg est bony edema. T12-L1: No evidence of significant spinal canal stenosis or neural foraminal stenosis. L1-L2: No evidence of significant spinal canal stenosis or neural foraminal stenosis. L2-L3: No evidence of significant spinal canal stenosis or neural foraminal stenosis. L3-L4: No evidence of significant spinal canal stenosis. Facet joint arthropathy moderate right and m oderate severe left neural foraminal stenosis. L4-L5: Disc bulge and facet joint arthropathy result in mild spinal canal and moderate to severe bila teral neural foraminal stenosis. L5-S1: The disc has a rounded posterior morphology without significant spinal canal stenosis. Facet j oint arthropathy with severe left and [id number] right neural foraminal stenosis. No significant spinal canal or neural foraminal stenosis in the remainder of the visualized levels. Other findings: Simple left renal cortical high T2 signal cyst measuring 15 mm. IMPRESSION: 1. No definitive evidence of disc herniation or significant spinal canal stenosis. 2. Severe facet joint arthropathy worse in the lumbar spine L3-L4 and L4-L5. 3. Neural foraminal stenosis worse at L4-L5 with moderate to severe bilateral, L5-S1 with severe left and moderate to severe right and L3-L4 with moderate right and moderate severe left [facility], , 08/19/2024 7:18 AM
== END | disposition home or self-care (01) ==
LOC: RADMRIMAIN 21:15
PROVIDERS: ATTEND Orthopaedic Surgery
DX: M47.816 Spondylosis without myelopathy or radiculopathy, lumbar region (principal); M48.061 Spinal stenosis, lumbar region without neurogenic claudication
CPT/HCPCS: 72148